=== PATIENT | male | born 2000 | race Caucasian/White ===

== ENCOUNTER 2020-01-08 19:19 | Emergency (ER) | payer OTHER, SELFPAY ==
[2020-01-08 19:23] VITALS: BP 133/84; PULSE 89; RESP 19; TEMP 37.1; O2SAT 100; BMI 31.1
--- NOTE | 2020-01-08 19:39 | ED_ITS ---
HPI - Abdominal Pain General: Chief Complaint: Abdominal Pain Stated Complaint: Abd pain leg numbness Time Seen by Provider: 01/08/20 19:39 Source: patient Mode of arrival: ambulatory Limitations: no limitations History of Present Illness: HPI narrative: Patient comes in with sudden onset of right upper quadrant abdominal pain. Patient states pain started abruptly around 7:00 this evening. Patient had eaten about an hour before. Patient denies any fever. Patient reports wavelike pattern of pain. Patient reports that movement sometimes elicits more pain. Patient appears well. Patient appears mild to moderate pain. Patient reports no chronic medical problems. MD elicited complaint: abdominal pain Review of Systems General: Reports: 10 or more systems reviewed and unremarkable except in HPI and below GI: Reports: abdominal pain Physical Exam Const: COMMON NORMALS: no acute distress and patient oriented x3 GENERAL APPEARANCE: cooperative HENMT: COMMON NORMALS: normocephalic and Normal external nose present HEAD & SCALP: normal to inspection and normocephalic NOSE: Normal external nose present MOUTH: Normal oral and palatal mucosa present Eye: GENERAL EYE: appearance normal, both eyes and all related structures Neck/C-Spine: COMMON NORMALS: full ROM Chest: COMMONS NORMALS: normal inspection of the chest Resp: COMMON NORMALS: normal respiratory effort EFFORT & INSPECTION: Yes able to speak in complete sentences Cardio: COMMON NORMALS: regular rate and regular rhythm RATE: regular rate RHYTHM: regular rhythm GI: OTHER: Generalized abdominal pain. Exacerbated on palpation right upper quadrant and periumbilical area. Bowel sounds are positive throughout all 4 q uadrants. : COMMON NORMALS: Yes no CVA tenderness BLADDER/KIDNEY EXAM: Yes no CVA tenderness Back/Pelvis: COMMON NORMALS: no CVA tenderness and thoracic and lumbar spine normal to inspection Extremity: COMMON NORMALS: normal to inspection Neuro: COMMON NORMALS: patient oriented x3 and moves all extremities Psych: COMMON NORMALS: mental status grossly normal and cooperative Skin: COMMON NORMALS: no rashes or lesions noted GENERAL SKIN EXAM: no rashes or lesions noted Course Vital Signs: Vital signs: Vital Signs Temperature 98.8 F 01/08/20 19:23 Pulse Rate 69 01/08/20 21:21 Respiratory Rate 16 01/08/20 21:21 Blood Pressure 133/84 01/08/20 19:23 Pulse Oximetry 100 01/08/20 21:21 MDM - Abdominal Pain MDM Narrative: Medical decision making narrative: Patient comes in with epigastric abdominal pain. Patient reports sudden onset this evening. Patient was complaining of generalized abdominal discomfort. Respirations were even lungs were clear to auscultation. Skin was warm and dry. Differential diagnosis included but not limited to cholecystitis, appendicitis, gastroenteritis, pancreatitis, renal calculi. Laboratory values noted a CBC, CMP, urinalysis were normal. CT scan of the abdomen pelvis noted no abnormalities. Feel the patient probably has some mild gastritis we will treat with famotidine 20 mg twice a day for the next 2 weeks. Patient was treated in the emergency room with Zofran, famotidine, and ketorolac with good results of pain control and relief of symptoms. Patient reported understanding of care plan and need for follow-up for further evaluation and treatment. Lab Data: Labs: Lab Results 01/08/20 01/08/20 01/08/20 Range/Units 20:02 20:02 20:07 WBC 8.6 (4.5-13.0) 10^3/ uL RBC 5.39 H (4.1-5.3) 10^6/u L Hgb 15.3 (11.7-16.6) g/dL Hct 46.5 (42.0-52.0) % MCV 86.3 (80-94) fL MCH 28.4 (28.0-34.0) pg MCHC 32.9 (30.0-36.0) g/dL RDW 12.3 (12.1-15.1) % Plt Count 346 (130-400) 10^3/c mm MPV 9.8 (7.4-10.4) fL Neut % (Auto) 55.9 % Lymph % (Auto) 33.8 % [place] % (Auto) 7.8 % Eos % (Auto) 2.1 % Baso % (Auto) 0.2 % Neut # (Auto) 4.81 (1.8-8.0) 10^3/u L Lymph # (Auto) 2.9 (1.5-6.5) 10^3/u L [place] # (Auto) 0.7 (0.2-0.9) 10^3/u L Eos # (Auto) 0.2 (0.0-0.8) 10^3/u L Baso # (Auto) 0.0 (0.0-0.1) 10^3/u L Nucleated RBC % (a uto) 0 % Nucleated RBCs # 0.0 /100WBC Sodium 140 (136-145) mmol/L Potassium 4.0 (3.5-5.1) mmol/L Chloride 101 (98-107) mmol/L Carbon Dioxide 27 (22-29) mmol/L Anion Gap 16.0 (5-19) BUN 12 (6-20) mg/dL Creatinine 0.9 (0.7-1.2) mg/dL GFR Calculation 108.7 (90-130) mL/min Glucose 97 (65-115) mg/dL Calculated Osmolal ity 290 (285-295) mOsm/k g Calcium 9.4 (8.5-10.5) mg/dL Total Bilirubin 0.2 (0.15-1.2) mg/dL AST 20 (0-40) U/L ALT 29 (0-41) U/L Alkaline Phosphata se 65 (40-130) IU/L Total Protein 8.0 (6.6-8.7) g/dL Albumin 4.8 (3.5-5.2) g/dL Globulin 3.2 (1.3-4.6) g/dL Lipase 13 (13-60) U/L Urine Color Yellow (Yellow) Urine Appearance Clear (CLEAR) Urine pH 7 (5-7) Ur Specific Gravit y 1.010 (1.005-1.030) Urine Protein Neg (Negative) Urine Glucose (UA) Norm (Normal) Urine Ketones Negative (Negative) Urine Blood Neg (Negative) Urine Nitrate Negative (Negative) Urine Bilirubin Neg (Negative) Urine Urobilinogen Norm (Negative) mg/dL Ur Leukocyte Antonia ase Negative (Negative) Discharge Plan Discharge Patient Disposition: Home Clinical Impression: Gastritis Qualifiers: Gastritis type: unspecified gastritis Chronicity: acute Gastritis bleeding: without bleeding Qualified Code(s): K29.00 - Acute gastritis without bleeding Condition: Stable Prescriptions: New famotidine 20 mg tablet 20 mg PO BID Qty: 60 RF: 0 No Action Tylenol 325 mg Tablet 325 mg PO QID PRN (Reason: Pain) RF: 0 Imodium A-D 2 mg Tablet 2 mg PO Q4H PRN (Reason: Diarrhea) RF: 0 hydrocodone-acetaminophen 7.5-325 mg Tablet 1 tab PO Q4H PRN (Reason: Pain) RF: 0 ibuprofen 200 mg Tablet 200 - 400 mg PO Q4H PRN (Reason: Pain) RF: 0 Discharge Orders: Discharge Order (Routine); Ordered 01/08/20 Ordered By: Uday Waller Discharge Diet: Usual diet Discharge Activity: Increase activity as tolerated Patient Instructions: Gastritis (ED) Activity Restrictions/Additional Instructions: Avoid tobacco and carbonated beverages. Drink plenty of fluids. Take medications as directed. Follow-up with primary care for further evaluation and treatment. Return to the emergency department for new concerns. Coding Level of Care Code ED Deliverer Food for Pranay Fwjoaquin Exam Comprehensive
--- NOTE | 2020-01-08 19:45 | CTR_ITS ---
PROCEDURE INFORMATION: Exam: CT Abdomen And Pelvis With Contrast Exam date and time: 01/08/2020 8:38 PM Age: 19 years old Clinical indication: Abdominal pain; Generalized; Additional info: Diffuse abd pain TECHNIQUE: Imaging protocol: Computed tomography of the abdomen and pelvis with intravenous contrast. Radiation optimization: All CT scans at this facility use at least one of these dose optimization techniques: automated exposure control; mA and/or kV adjustment per patient size (includes targeted exams where dose is matched to clinical indication); or iterative reconstruction. Contrast material: OMNI 300; Contrast volume: 95 ml; Contrast route: INTRAVENOUS (IV); COMPARISON: No relevant prior studies available. RADIATION DOSE METRICS: Total DLP (mGy-cm): 1042.99 FINDINGS: Liver: There is no focal abnormality within the liver. Gallbladder and bile ducts: The gallbladder is normal. Pancreas: The pancreas is normal. Spleen: The spleen is normal. Adrenal glands: The adrenal glands are normal. Kidneys and ureters: The kidneys are normal. There is no evidence of hydronephrosis. There is no evidence of renal or ureteral calcifications. Stomach and bowel: There is no evidence of colitis/diverticulitis. Appendix: A normal appendix is identified. Intraperitoneal space: There is no evidence of free intraperitoneal fluid. Vasculature: Unremarkable. No abdominal aortic aneurysm. Lymph nodes: Unremarkable. No enlarged lymph nodes. Urinary bladder: Unremarkable as visualized. Reproductive: Unremarkable as visualized. Bones/joints: Unremarkable. No acute fracture. Soft tissues: Unremarkable. CT/CT abdomen pelvis w con* [id number] IMPRESSION: No acute findings. Radiation Dose CTDIVOL = (mGy): DLP = 1042.99 (mGy-cm)
[2020-01-08 20:16] LABS: Basophils % 0.2 %; Eosinophils # 0.2 10^3/uL (0.0-0.8); Eosinophils % 2.1 %; Hematocrit 46.5 % (42.0-52.0); Hemoglobin 15.3 g/dL (11.7-16.6); Lymphocytes # 2.9 10^3/uL (1.5-6.5); Lymphocytes % 33.8 %; Mean Corpuscular HGB Conc 32.9 g/dL (30.0-36.0); Mean Corpuscular Hemoglobin 28.4 pg (28.0-34.0); Mean Corpuscular Volume 86.3 fL (80-94); Mean Platelet Volume 9.8 fL (7.4-10.4); Monocytes # 0.7 10^3/uL (0.2-0.9); Monocytes % 7.8 %; Neutrophils # 4.81 10^3/uL (1.8-8.0); Neutrophils % 55.9 %; Nucleated Red Blood Cells % 0 %; Platelet Count 346 10^3/cmm (130-400); Red Blood Count 5.39 10^6/uL (4.1-5.3); Red Cell Distribution Width 12.3 % (12.1-15.1); White Blood Count 8.6 10^3/uL (4.5-13.0)
[2020-01-08 20:20] LABS: Add Urine Microscopic? NO
[2020-01-08 20:29] LABS: Bilirubin Urine Neg (Negative); Blood Urine Neg (Negative); Glucose Urine UA Norm (Normal); Ketones Urine Negative (Negative); Leukocyte Esterase Urine Negative (Negative); Nitrate Urine Negative (Negative); Protein Urine Neg (Negative); Urine Appearance Clear (CLEAR); Urine Color Yellow (Yellow); Urobilinogen Urine Norm (Negative); pH Urine 7 (5-7)
[2020-01-08 20:33] LABS: Alanine Aminotransferase 29 U/L (0-41); Albumin Level 4.8 g/dL (3.5-5.2); Alkaline Phosphatase 65 IU/L (40-130); Aspartate Amino Transferase 20 U/L (0-40); Blood Urea Nitrogen 12 mg/dL (6-20); Calcium 9.4 mg/dL (8.5-10.5); Carbon Dioxide 27 mmol/L (22-29); Chloride 101 mmol/L (98-107); Globulin 3.2 g/dL (1.3-4.6); Glomerular Filtration Rate 108.7 mL/min (90-130); Glucose 97 mg/dL (65-115); Lipase 13 U/L (13-60); Osmolality Calculated 290 mOsm/kg (285-295); Sodium 140 mmol/L (136-145); Total Bilirubin 0.2 mg/dL (0.15-1.2)
[2020-01-08] MEDS: famotidine 20 mg/2 mL INJ 40 MG IVP (20:33)
[2020-01-08] MEDS: ketorolac 30 mg/mL INJ 15 MG IVP (20:33)
[2020-01-08] MEDS: ondansetron 2 mg/ML SDV 2 mL 4 MG IVP (20:33)
[2020-01-08] MEDS: iohexol 300 mg/mL 100 mL Btl IV (20:49)
[2020-01-08 21:21] VITALS: PULSE 69; RESP 16; O2SAT 100
== END 2020-01-08 22:01 | disposition home or self-care (01) ==
PROVIDERS: Emergency Medicine; Emergency Provider Nurse Practitioner Family
DX: K29.00 Acute gastritis without bleeding (principal)
CPT/HCPCS: 12345; 74177; 80053; 81003; 83690; 85025; 96374; 96375; 99283; J1885; J2405; J3490; Q9967

== ENCOUNTER 2021-05-20 17:59 | Observation (INO) | payer OTHER, SELFPAY ==
[2021-05-20 18:13] VITALS: BP 142/82; PULSE 77; RESP 18; TEMP 36.9; O2SAT 99; BMI 32.5
--- NOTE | 2021-05-20 18:29 | CTR_ITS ---
PROCEDURE INFORMATION: Exam: CT Abdomen And Pelvis With Contrast Exam date and time: 05/20/2021 6:59 PM Age: 20 years old Clinical indication: Abdominal pain; Localized; Right lower quadrant (rlq); Patient HX: 2 day C/O rlq pain w nausea and diarrhea; Additional info: Rlq abdominal pain, nausea, diarrhea TECHNIQUE: Imaging protocol: Computed tomography of the abdomen and pelvis with contrast. Radiation optimization: All CT scans at this facility use at least one of these dose optimization techniques: automated exposure control; mA and/or kV adjustment per patient size (includes targeted exams where dose is matched to clinical indication); or iterative reconstruction. Contrast material: OMNI 300; Contrast volume: 95 ml; Contrast route: INTRAVENOUS (IV); COMPARISON: CT abdomen pelvis w con* [id number] 01/08/2020 8:39 PM RADIATION DOSE METRICS: Total DLP (mGy-cm): 1799.56 FINDINGS: Lungs: The lung bases appear unremarkable. Liver: The liver is unremarkable in appearance. Gallbladder and bile ducts: No calcified gallstones in the gallbladder. No gallbladder wall thickening. No pericholecystic fluid. No biliary dilatation. Pancreas: The pancreas is normal in appearance. No pancreatic duct dilatation. Spleen: The spleen is normal in size and appearance. Adrenal glands: The adrenal glands appear within normal limits. Kidneys and ureters: The kidneys are normal in morphology. No hydronephrosis. No solid mass. Stomach and bowel: No acute gastric abnormality demonstrated. The small bowel is unremarkable as demonstrated. No acute abnormality/inflammatory change of the colon. Appendix: The appendix is mildly enlarged, measuring up to 6.5 mm in diameter. This mild enlargement of the appendix is a new finding when compared to 01/08/2020, and is suspicious for early appendicitis. The appendix is normal in appearance. No evidence of appendicitis. Intraperitoneal space: No free air. No significant fluid collection. Arteries: Unremarkable. No abdominal aortic aneurysm. Lymph nodes: No pathologically enlarged lymph nodes. Urinary bladder: The urinary bladder is unremarkable in appearance. The urinary bladder is unremarkable in appearance. Reproductive: Unremarkable as visualized. Bones/joints: Unremarkable. No acute osseous abnormality. Soft tissues: Unremarkable. CT/CT abdomen pelvis w con* [id number] IMPRESSION: 1. The appendix is mildly enlarged, measuring up to 6.5 mm in diameter. This mild enlargement of the appendix is a new finding when compared to 01/08/2020, and is suspicious for early appendicitis. There is no associated perforation or abscess. 2. No acute abnormality of the solid organs demonstrated. 3. No acute bowel abnormality identified.
--- NOTE | 2021-05-20 18:30 | W.ED.ABDPA2 ---
HPI - Abdominal Pain General: Chief Complaint: Abdominal Pain Stated Complaint: R side abd pain Time Seen by Provider: 05/20/21 18:05 History of Present Illness: Patient is a 20-year-old male comes to the ED with abdominal pain. Symptoms started 2 days ago. Pain is located in right lower quadrant and was initially more mild dull ache pain. Over the last 24 hours the pain has worsened and he now rates it a 7 out of 10 and it is constant. He says pain starts on the right lower quadrant and will radiate up the right side of his abdomen. Endorses having some nausea and decreased appetite for the past 2 days. He also endorses having a couple episodes of diarrhea over the last 24 hours as well. Denies any past abdominal surgeries. Denies any fevers, vomiting, dysuria or hematuria. Associated Symptoms: Reports diarrhea and nausea; Denies chills, constipation, dysuria, fever(s), hematochezia, hematuria and vomiting Review of Systems Const: Reports: change in appetite (Decreased appetite); Denies: fever(s), chills or fatigue Eyes: Denies: change in vision or eye discomfort ENMT: Denies: throat pain, odynophagia, nasal discharge or nasal congestion Card: Denies: chest pain, palpitations, edema, swelling of feet/ankles, dyspnea on exertion or orthopnea Resp: Denies: dyspnea, productive cough or non-productive cough GI: Reports: abdominal pain, nausea and diarrhea; Denies: vomiting, constipation or hematochezia : Denies: flank pain, difficulty urinating, dysuria or hematuria Musc: Denies: neck pain, back pain or extremity swelling Skin/Breast: Denies: rash or new lesions Neuro: Denies: headache(s), numbness in extremities or weakness in extremities PFS ED PFSH: Medical History No pertinent past medical history Surgical History No pertinent past surgical history Physical Exam Const: COMMON NORMALS: patient oriented x3 and alert GENERAL APPEARANCE: cooperative HENMT: COMMON NORMALS: normocephalic HEAD & SCALP: normocephalic MOUTH: Normal oral and palatal mucosa present THROAT: posterior oropharynx normal and uvula midline Neck/C-Spine: COMMON NORMALS: supple GENERAL: Yes normal visual inspection Resp: COMMON NORMALS: normal respiratory effort, No retractions, No use of accessory muscles and clear to auscultation bilaterally AUSCULTATION: clear to auscultation bilaterally Cardio: COMMON NORMALS: regular rate, regular rhythm, S1 normal heart sound present, S2 normal heart sound present, No gallops present (Cardio), No clicks present (Cardio), No murmurs present (Cardio) and Peripheral pulses 2+ throughout RATE: regular rate RHYTHM: regular rhythm HEART SOUNDS: S1 normal heart sound present and S2 normal heart sound present PERIPHERAL PULSES: Peripheral pulses 2+ throughout GI: COMMON NORMALS: Normal to inspection, nondistended, normoactive bowel sounds present, Soft to palpation and no masses PALPATION: Yes Soft to palpation and Yes Tenderness to palpation present (GI) Details: RLQ : BLADDER/KIDNEY EXAM: Yes CVA tenderness on the right Back/Pelvis: GENERAL BACK: Yes CVA tenderness Extremity: COMMON NORMALS: normal to inspection Neuro: COMMON NORMALS: patient oriented x3 SENSORIUM/ORIENTATION: Yes alert GAIT: Yes Normal gait present Skin: GENERAL SKIN EXAM: dry skin Course Consultations: Consultation #1: I contacted Dr. Duncan dull about patient case. He agreed to have patient admitted and he will take them for surgery tomorrow morning. He wanted me to start patient on IV Zosyn. Time: 19:45 Vital Signs: Vital signs: Vital Signs Temperature 98.5 F 05/20/21 18:13 Pulse Rate 77 05/20/21 18:13 Respiratory Rate 16 05/20/21 20:26 Blood Pressure 142/82 05/20/21 18:13 Pulse Oximetry 99 05/20/21 18:13 MDM - Abdominal Pain Medical Decision Making Patient is a 20-year-old male comes to the ED with right lower quadrant abdominal pain this feeling over the past 2 days. Vitals are stable and patient is afebrile. Exam of patient shows some right lower quadrant abdominal tenderness, but rest of exam is benign. White blood cell count normal at 7.8. Blood cultures pending. The rest of labs are unremarkable. CT of abdomen pelvis showed signs of early appendicitis. I contacted Dr. Duncan and told about patient case and he recommends having patient admitted and he will take them for surgery tomorrow morning. Patient was started on some IV Zosyn here in the ED. Dr. Vargas placed the admitting orders. Lab Data I reviewed the patient's lab results. : 05/20/21 18:38 05/20/21 18:38 Labs/Radiology: Radiology Impressions Abdomen/Pelvis CT 05/20/21 18:29 IMPRESSION: 1. The appendix is mildly enlarged, measuring up to 6.5 mm in diameter. This mild enlargement of the appendix is a new finding when compared to 01/08/2020, and is suspicious for early appendicitis. There is no associated perforation or abscess. 2. No acute abnormality of the solid organs demonstrated. 3. No acute bowel abnormality identified. ADDENDUM: 05/20/21 193 THIS REPORT CONTAINS FINDINGS MAY BE CRITICAL TO PATIENT CARE. The findings were verbally communicated via telephone conference call with TAYA ELIZABETH at 7:29 PM CDT on 05/20/2021. The findings were acknowledged and understood. Laboratory Results WBC 7.8 10^3/uL (4.5-13.0) 05/20/21 18:38 RBC 5.72 10^6/uL (4.1-5.3) H 05/20/21 18:38 Hgb 16.3 g/dL (11.7-16.6) 05/20/21 18:38 Hct 49.5 % (42.0-52.0) 05/20/21 18:38 MCV 86.5 fl (80-94) 05/20/21 18:38 MCH 28.5 pg (28.0-34.0) 05/20/21 18:38 MCHC 32.9 g/dL (30.0-36.0) 05/20/21 18:38 RDW 12.5 % (12.1-15.1) 05/20/21 18:38 Plt Count 371 10^3/cmm (130-400) 05/20/21 18:38 MPV 9.9 fL (7.4-10.4) 05/20/21 18:38 Neut % (Auto) 55.0 % 05/20/21 18:38 Lymph % (Auto) 32.8 % 05/20/21 18:38 [place] % (Auto) 10.0 % 05/20/21 18:38 Eos % (Auto) 1.5 % 05/20/21 18:38 Baso % (Auto) 0.4 % 05/20/21 18:38 Neut # (Auto) 4.30 10^3/uL (1.8-8.0) 05/20/21 18:38 Lymph # (Auto) 2.6 10^3/uL (1.5-6.5) 05/20/21 18:38 [place] # (Auto) 0.8 10^3/uL (0.2-0.9) 05/20/21 18:38 Eos # (Auto) 0.1 10^3/uL (0.0-0.8) 05/20/21 18:38 Baso # (Auto) 0.0 10^3/uL (0.0-0.1) 05/20/21 18:38 Nucleated RBC % (auto) 0 % 05/20/21 18:38 Nucleated RBCs # 0.0 /100WBC 05/20/21 18:38 Sodium 138 mmol/L (136-145) 05/20/21 18:38 Potassium 4.2 mmol/L (3.5-5.1) 05/20/21 18:38 Chloride 100 mmol/L (98-107) 05/20/21 18:38 Carbon Dioxide 28 mmol/L (22-29) 05/20/21 18:38 Anion Gap 14.2 (5-19) 05/20/21 18:38 BUN 10 mg/dL (6-20) 05/20/21 18:38 Creatinine 1.0 mg/dL (0.7-1.2) 05/20/21 18:38 GFR Calculation 95.3 mL/min (90-130) 05/20/21 18:38 Glucose 78 mg/dL (65-115) 05/20/21 18:38 Calculated Osmolality 284 mOsm/kg (285-295) L 05/20/21 18:38 Calcium 9.9 mg/dL (8.5-10.5) 05/20/21 18:38 Total Bilirubin 0.5 mg/dL (0.15-1.2) 05/20/21 18:38 AST 24 U/L (0-40) 05/20/21 18:38 ALT 35 U/L (0-41) 05/20/21 18:38 Alkaline Phosphatase 71 IU/L (40-130) 05/20/21 18:38 Total Protein 8.9 g/dL (6.6-8.7) H 05/20/21 18:38 Albumin 5.1 g/dL (3.5-5.2) 05/20/21 18:38 Globulin 3.8 g/dL (1.3-4.6) 05/20/21 18:38 Lipase 18 U/L (13-60) 05/20/21 18:38 Urine Color Yellow (Yellow) 05/20/21 18:53 Urine Appearance Clear (CLEAR) 05/20/21 18:53 Urine pH 7 (5-7) 05/20/21 18:53 Ur Specific [place] 1.005 (1.005-1.030) 05/20/21 18:53 Urine Protein Neg (Negative) 05/20/21 18:53 Urine Glucose (UA) Norm (Normal) 05/20/21 18:53 Urine Ketones Negative (Negative) 05/20/21 18:53 Urine Blood Neg (Negative) 05/20/21 18:53 Urine Nitrate Negative (Negative) 05/20/21 18:53 Urine Bilirubin Neg (Negative) 05/20/21 18:53 Urine Urobilinogen Norm mg/dL (Negative) 05/20/21 18:53 Ur Leukocyte Esterase Negative (Negative) 05/20/21 18:53 Discharge Plan Discharge Patient Disposition: Admitted As Inpatient Clinical Impression: Acute appendicitis Qualifiers: Acute appendicitis type: with localized peritonitis Appendicitis gangrene presence: without gangrene Appendicitis perforation presence: without perforation Appendicitis abscess presence: without abscess Qualified Code(s): K35.30 - Acute appendicitis with localized peritonitis, without perforation or gangrene Condition: Stable Discharge Activity: Resume usual activity Coding Level of Care Code ED Protection Manager for Pranay Fwd Exam Comprehensive
[2021-05-20 18:46] LABS: Basophils % 0.4 %; Eosinophils # 0.1 10^3/uL (0.0-0.8); Eosinophils % 1.5 %; Hematocrit 49.5 % (42.0-52.0); Hemoglobin 16.3 g/dL (11.7-16.6); Lymphocytes # 2.6 10^3/uL (1.5-6.5); Lymphocytes % 32.8 %; Mean Corpuscular HGB Conc 32.9 g/dL (30.0-36.0); Mean Corpuscular Hemoglobin 28.5 pg (28.0-34.0); Mean Corpuscular Volume 86.5 fl (80-94); Mean Platelet Volume 9.9 fL (7.4-10.4); Monocytes # 0.8 10^3/uL (0.2-0.9); Nucleated Red Blood Cells % 0 %; Platelet Count 371 10^3/cmm (130-400); Red Blood Count 5.72 10^6/uL (4.1-5.3); Red Cell Distribution Width 12.5 % (12.1-15.1); White Blood Count 7.8 10^3/uL (4.5-13.0)
[2021-05-20] MEDS: sodium chloride 0.9% 500 ML 999 ML IV (18:46)
[2021-05-20] MEDS: morphine 4 mg/mL SDV 1 mL 2 MG IVP (18:48)
[2021-05-20] MEDS: ondansetron 2 mg/ML SDV 2 mL 4 MG IVP (18:51)
[2021-05-20] MEDS: iohexol 300 mg/mL 100 mL Btl IV (18:57)
[2021-05-20 19:11] LABS: Alanine Aminotransferase 35 U/L (0-41); Albumin Level 5.1 g/dL (3.5-5.2); Alkaline Phosphatase 71 IU/L (40-130); Anion Gap 14.2 (5-19); Blood Urea Nitrogen 10 mg/dL (6-20); Calcium 9.9 mg/dL (8.5-10.5); Carbon Dioxide 28 mmol/L (22-29); Chloride 100 mmol/L (98-107); Creatinine Clr Calc Pharmacy 150.1747; Globulin 3.8 g/dL (1.3-4.6); Glomerular Filtration Rate 95.3 mL/min (90-130); Glucose 78 mg/dL (65-115); Lipase 18 U/L (13-60); Osmolality Calculated 284 mOsm/kg (285-295); Potassium 4.2 mmol/L (3.5-5.1); Sodium 138 mmol/L (136-145); Total Bilirubin 0.5 mg/dL (0.15-1.2); Total Protein 8.9 g/dL (6.6-8.7)
[2021-05-20 19:20] LABS: Aspartate Amino Transferase 24 U/L (0-40)
[2021-05-20 19:21] LABS: Add Urine Microscopic? NO; Charge for UA Resulting for Rev
[2021-05-20 19:25] LABS: Bilirubin Urine Neg (Negative); Blood Urine Neg (Negative); Glucose Urine UA Norm (Normal); Ketones Urine Negative (Negative); Leukocyte Esterase Urine Negative (Negative); Nitrate Urine Negative (Negative); Protein Urine Neg (Negative); Specific Gravity, Urine 1.005 (1.005-1.030); Urine Appearance Clear (CLEAR); Urine Color Yellow (Yellow); Urobilinogen Urine Norm (Negative); pH Urine 7 (5-7)
[2021-05-20] MEDS: piperacillin-tazobactam 3.375 GM in sodium chloride 0.9% (plus) 50 ML IV (20:12)
[2021-05-20 20:26] VITALS: RESP 16
[2021-05-20] MEDS: morphine 4 mg/mL SDV 1 mL IVP ×2 (20:26→21:46)
[2021-05-20 21:18] VITALS: BMI 32.4
[2021-05-20 21:33] VITALS: BP 123/74; PULSE 66; RESP 17; TEMP 37.2; O2SAT 98
[2021-05-20] MEDS: sodium chloride 0.9% 1,000 ML 100 ML IV (21:44)
[2021-05-20 21:46] VITALS: RESP 16
[2021-05-20 23:46] VITALS: BP 107/63; PULSE 65; RESP 17; TEMP 36.4; O2SAT 97
[2021-05-21] VITALS (29 sets, daily range): BP systolic 96–146; BP diastolic 48–77; PULSE 61–99; RESP 14–22; TEMP 36.2–37.2; O2SAT 91–100
[2021-05-21] MEDS: piperacillin-tazobactam 3.375 GM in sodium chloride 0.9% (plus) 50 ML IV ×3 (01:21→18:06)
[2021-05-21] MEDS: morphine 4 mg/mL SDV 1 mL IVP ×3 (01:51→23:27)
[2021-05-21 03:52] LABS: Basophils % 0.2 %; Eosinophils # 0.1 10^3/uL (0.0-0.8); Eosinophils % 1.4 %; Hematocrit 41.5 % (42.0-52.0); Hemoglobin 13.5 g/dL (11.7-16.6); Lymphocytes # 2.9 10^3/uL (1.5-6.5); Lymphocytes % 30.6 %; Mean Corpuscular HGB Conc 32.5 g/dL (30.0-36.0); Mean Corpuscular Hemoglobin 28.4 pg (28.0-34.0); Mean Corpuscular Volume 87.2 fl (80-94); Mean Platelet Volume 10.4 fL (7.4-10.4); Monocytes # 0.7 10^3/uL (0.2-0.9); Monocytes % 7.5 %; Neutrophils # 5.74 10^3/uL (1.8-8.0); Neutrophils % 60.2 %; Nucleated Red Blood Cells % 0 %; Platelet Count 320 10^3/cmm (130-400); Red Blood Count 4.76 10^6/uL (4.1-5.3); Red Cell Distribution Width 12.5 % (12.1-15.1); White Blood Count 9.5 10^3/uL (4.5-13.0)
--- NOTE | 2021-05-21 05:57 | PC.NURSE ---
PATIENT ENCOURAGED TO GET UP IN CHAIR THIS AM. PATIENT VERBALIZED UNDERSTANDING.
--- NOTE | 2021-05-21 06:04 | P.HP_ITS ---
Providers/Chief Complaint Admitting Physician: Eliazar Duncan MD Chief Complaint: R side abd pain History of Present Illness Mr. Uday Shelton is a 20 year old male otherwise healthy presented to the emergency department with worsening right lower abdominal pain associated with nausea but no vomiting. Pain started first at the periumbilical area then started shifting to the right side. Describes it as sharp and then got worse. Nothing seems to make it better or worse. Patient denies any dysuria but he did have some looser stools last time he had a bowel movement was yesterday evening prior to coming to the ER. He is healthy otherwise and only procedure he did have undergone uneventful wisdom tooth extraction under [facility] and he reports that hydrocodone does not work good for him but only Percocet. Patient reports history of DVT in the family for his grandparents but nothing has been tested for factor V and himself he never had blood clot. No history of bleeding tendencies otherwise. Blood work was of insignificance. Undergone a CT scan of the abdomen pelvis that did show 1. The appendix is mildly enlarged, measuring up to 6.5 mm in diameter. This mild enlargement of the appendix is a new finding when compared to 01/08/2020, and is suspicious for early appendicitis. There is no associated perforation or abscess. 2. No acute abnormality of the solid organs demonstrated. 3. No acute bowel abnormality identified. General surgery was consulted for further evaluation and patient was admitted to my service as an observation status and was placed on broad-spectrum antibiotics and was kept n.p.o. with IV fluid resuscitation with the plan to perform laparoscopic appendectomy. ? Review of Systems General: Reports: 10 or more systems reviewed and unremarkable except in HPI and below Medications/Allergies Home Medications Medication Instructions Recorded Confirmed Last Taken Type acetaminophen 325 mg tablet 325 mg PO QID PRN 01/08/20 01/08/20 Unknown History (Tylenol) famotidine 20 mg tablet 20 mg PO BID #60 tab 01/08/20 Unknown Rx hydrocodone 7.5 mg-acetaminophen 1 tab PO Q4H PRN 01/08/20 01/08/20 Unknown History 325 mg tablet ibuprofen 200 mg tablet 200 - 400 mg PO Q4H PRN 01/08/20 01/08/20 Unknown History loperamide 2 mg tablet (Imodium 2 mg PO Q4H PRN 01/08/20 01/08/20 01/08/20 History A-D) Allergies Allergy/AdvReac Type Severity Reaction Status Date / Time No Known Allergies Allergy Verified 05/21/21 06:06 PFSH Acute PFSH: Medical History No pertinent past medical history Surgical History No pertinent past surgical history Family History Other Bleeding disorder Vitals/I&O/Wt Last Vital Signs Temp 97.7 F 05/21/21 04:00 Pulse 61 05/21/21 04:00 Resp 15 05/21/21 05:53 BP 104/66 05/21/21 04:00 Pulse Ox 98 05/21/21 04:00 05/20/21 05/20/21 05/21/21 14:59 22:59 06:59 Intake Total 50 / 50 50 / 100 Output Total 0 / 0 Balance 50 / 50 50 / 100 Weight last 48 hrs Weight 239 lb 6.4 oz Weight 240 lb Physical Exam Const: COMMON NORMALS: no acute distress and patient oriented x3 GENERAL APPEARANCE: cooperative ORIENTATION/CONSCIOUSNESS: Yes awake, Yes oriented to person, Yes oriented to place and Yes oriented to time HENMT: COMMON NORMALS: normocephalic HEAD & SCALP: normocephalic Eye: COMMON NORMALS: Equal, round and reactive pupils present and no scleral icterus PUPIL: Yes Equal, round and reactive pupils present Lymph: LYMPHATIC: no lymphadenopathy noted Chest: COMMONS NORMALS: normal inspection of the chest Resp: COMMON NORMALS: normal respiratory effort and clear to auscultation bilaterally AUSCULTATION: clear to auscultation bilaterally Cardio: COMMON NORMALS: S1 normal heart sound present and S2 normal heart s ound present; negative for No murmurs present (Cardio) HEART SOUNDS: S1 normal heart sound present and S2 normal heart sound present GI: COMMON NORMALS: Soft to palpation; negative for No hepatosplenomegaly present INSPECTION: Yes normal to inspection PALPATION: Yes Soft to palpation, No Firmness to palpation present (GI), Yes Tenderness to palpation present (GI) Details: RLQ (Tenderness of the right lower quadrant maximal at McBurney's point), No Guarding due to palpation present (GI), No Rigid due to palpation and No No hepatosplenomegaly present Neuro: COMMON NORMALS: patient oriented x3 SENSORIUM/ORIENTATION: Yes oriented to person, Yes oriented to place and Yes oriented to time Psych: COMMON NORMALS: mental status grossly normal Skin: COMMON NORMALS: no rashes or lesions noted GENERAL SKIN EXAM: no rashes or lesions noted Data : 05/21/21 02:45 05/20/21 18:38 Micro: Microbiology 05/20/21 19:52 Blood Culture - Preliminary Blood SPECIMEN COLLECTED 05/20/21 19:38 Blood Culture - Preliminary Blood SPECIMEN COLLECTED A&P Assessment and plan (1) Acute appendicitis: After thorough history physical examination and reviewing the chart and images with my personal interpretion, I counseled the patient for laparoscopic appendectomy possible open. Indications, risks, benefits and alternatives were all discussed with the patient and did agree to proceed. Rationale was carefully and clearly discussed with the patient.Appropriate informed consent have been reviewed and signed Status: Acute Qualifiers: Acute appendicitis type: with localized peritonitis Appendicitis abscess presence: without abscess Appendicitis gangrene presence: without gangrene Appendicitis perforation presence: without perforation Qualified Code(s): K35.30 - Acute appendicitis with localized peritonitis, without perforation or gangrene Attestations Medical Necessity Statement*: Observation status Time Spent in Patient Care: 16 - 35 minutes Coding Level of Care Code Acute [place] [employer] for [facility] Fwd Exam Comprehensive Diagnoses Acute appendicitis K35.30 Acute appendicitis type: with localized peritonitis Appendicitis abscess presence: without abscess Appendicitis gangrene presence: without gangrene Appendicitis perforation presence: without perforation
[2021-05-21] MEDS: heparin 5,000 unit/mL INJ 1 mL 2000 UNIT SUBCUT (07:54)
[2021-05-21] MEDS: acetaminophen 1,000 MG/100 ML PIGGYBACK 400 MG IV (07:54)
--- NOTE | 2021-05-21 08:13 | ANES.PREANE2 ---
Pre-Anesthetic Assessment Height/Weight: Height 1.83 m Weight 108.59 kg Temp Pulse Resp BP Pulse Ox 97.7 F 61 15 104/66 98 05/21/21 04:00 05/21/21 04:00 05/21/21 05:53 05/21/21 04:00 05/21/21 04:00 Preop Diagnosis: Acute appendicitis Operation Date: 05/21/21 08:50 Proposed Procedures p Laparoscopic Appendectomy c poss Open(Not Applicable) - Eliazar Duncan MD Familial anesthetic complications: None Was Beta Bel taken within 24 hours: N/A Was Clonidine taken within 24 hours: N/A Last intake: Intake Last Liquid Date 05/20/21 Last Liquid Time 23:45 Last Solid Date 05/20/21 Last Solid Time 14:00 Social Alcohol (occassional) and Tobacco Exam alert, oriented x 3, clear to auscultation bilaterally and regular rate & rhythm Airway Mallampati: Class IV Dentition: full Comments: Comments: menjivar GI Gastroesophageal Reflux Disease Anesthetic Plan ASA status: 2 Anesthesia: General Risk of > 500 ml blood loss (7ml/kg in children): No Medications/Allergies Home Medications Medication Instructions Recorded Confirmed Last Taken Type acetaminophen 325 mg tablet 325 mg PO QID PRN 01/08/20 01/08/20 Unknown History (Tylenol) famotidine 20 mg tablet 20 mg PO BID #60 tab 01/08/20 Unknown Rx hydrocodone 7.5 mg-acetaminophen 1 tab PO Q4H PRN 01/08/20 01/08/20 Unknown History 325 mg tablet ibuprofen 200 mg tablet 200 - 400 mg PO Q4H PRN 01/08/20 01/08/20 Unknown History loperamide 2 mg tablet (Imodium 2 mg PO Q4H PRN 01/08/20 01/08/20 01/08/20 History A-D) Allergies Allergy/AdvReac Type Severity Reaction Status Date / Time No Known Allergies Allergy Verified 05/21/21 06:06 Current Medications Generic Name Dose Route Start Last Admin Trade Name Freq PRN Reason Stop Dose Admin Sodium Chloride 1,000 mls @ 100 mls/hr 05/20/21 21:17 05/20/21 21:44 Sodium Chloride 0.9% IV 100 mls/hr .Q10H ALEJANDRA Administration Piperacillin Sod/Tazobactam 50 mls @ 12.5 mls/hr 05/21/21 02:15 05/21/21 05:23 Sod 3.375 gm/ Sodium Chloride IV Infused Q8H ALEJANDRA Infusion Protocol Morphine Sulfate 4 mg 05/20/21 21:17 05/21/21 05:53 Morphine 4 Mg/Ml Sdv 1 Ml IVP 4 mg Q4H PRN Administration SEVERE PAIN PFSH Anesthesia Medical History No pertinent past medical history Surgical History No pertinent past surgical history Family History Other Bleeding disorder Data Anesthesia : 05/21/21 02:45 05/20/21 18:38 Short CBC 05/20/21 05/21/21 Range/Units 18:38 02:45 WBC 7.8 9.5 (4.5-13.0) 10^3/uL Hgb 16.3 13.5 (11.7-16.6) g/dL Hct 49.5 41.5 L (42.0-52.0) % MCV 86.5 87.2 (80-94) fl Plt Count 371 320 (130-400) 10^3/cmm Neut % (Auto) 55.0 60.2 % Neut # (Auto) 4.30 5.74 (1.8-8.0) 10^3/uL BMP 05/20/21 18:38 Sodium 138 Potassium 4.2 Chloride 100 Carbon Dioxide 28 BUN 10 Creatinine 1.0 Glucose 78 Calcium 9.9 Liver Function 05/20/21 Range/Units 18:38 Total Bilirubin 0.5 (0.15-1.2) mg/dL AST 24 (0-40) U/L ALT 35 (0-41) U/L Alkaline Phosphatase 71 (40-130) IU/L Albumin 5.1 (3.5-5.2) g/dL Urine 05/20/21 Range/Units 18:53 Urine Color Yellow (Yellow) Urine Appearance Clear (CLEAR) Urine pH 7 (5-7) Ur Specific [place] 1.005 (1.005-1.030) Urine Protein Neg (Negative) Urine Glucose (UA) Norm (Normal) Urine Ketones Negative (Negative) Urine Nitrate Negative (Negative) Urine Bilirubin Neg (Negative) Ur Leukocyte Esterase Negative (Negative) Microbiology 05/20/21 19:52 Blood Culture - Preliminary Blood SPECIMEN COLLECTED 05/20/21 19:38 Blood Culture - Preliminary Blood SPECIMEN COLLECTED Cardiac Studies: No Data to Display
[2021-05-21] MEDS: sodium chloride 0.9% 1,000 ML 30 ML IV (08:20)
[2021-05-21] MEDS: lidocaine 2% INJ 20 mL INJECTION (09:18)
--- NOTE | 2021-05-21 09:31 | PM.OP ---
Operative Report Date of procedure: May 21, 2021 Pre-op diagnosis: Preop Diagnosis Acute appendicitis Post-op diagnosis: Acute appendicitis Post-op findings: Retrocecal appendicitis without perforation Procedure done: Laparoscopic appendectomy Specimens removed/disposition: Appendix Surgeon: Eliazar Duncan MD Drop Count Associate: Surgical karlene Vital and Mckenzie Circulating nurse Josefina Anesthesia: General (application penetration tester Will Smart) Estimated blood loss (mL): 10 IV fluids (mL): 700 Procedure: Patient after being identified in the holding area and asked to void urine, and informed consent per chart ,patient was then taken back to the OR placed in supine position got intubated by anesthesia left arm was tucked tucked ,Timeout was done verifying the patient's name/date of /planned procedure and destination after the procedure, all were in agreement., preoperative antibiotics administered per protocol. prep and drape of the abdomen was done under the usual sterile technique. Started by longitudinal skin incision supraumbilical using a Fernández trocar technique safe entry to the abdominal cavity was achieved verified by using 10 mm zero degree laparoscopy, switched to a 30? scope under direct visualization a suprapubic 5 mm trocar was inserted followed by another 5 mm trocar inserted in the left lower quadrant. I was able to position the patient in an T Freitas and left side down, dissection of the prececal acutely inflamed appendix there was some adhesions towards the lateral pelvic wall that was taken down by sharp and blunt dissection, attention was deviated to the healthy base of the appendix where I had to switch the camera to 5 mm 30? scope got introduced through the left lower quadrant and through the Fernández trocar under direct visualization a GI stapler 45 mm blue load was applied at the healthy part of the base of the appendix, and an Endoloop PDS was applied onto the mesoappendix for control , the appendix was then retrieved in an Endo Catch bag, final survey was done of the abdomen and pelvis. Multiple 5 mm clips were applied onto the mesoappendix as well as the appendectomy staple line and a right lateral pelvic wall for minimal oozing. Final look laparoscopy was done showing no other abnormalities or injuries, all trocars were taken out under direct visualization after the supraumblical trocar site was closed by #1 PDS sutures under direct vision using fascial closure device ,followed by skin closure using 3 oh followed by 4-0 Monocryl of all trocar site incisions. infiltration of local lidocaine 2% was done to all incision sites.Dry dressing was applied. Count was completed at the end of the procedure for [place] , sponges and instruments Patient tolerated the procedure well and was transferred to the recovery area after extubation. I was present for the whole entire procedure
[2021-05-21] MEDS: ondansetron 2 mg/ML SDV 2 mL 4 MG IVP (09:58)
[2021-05-21] MEDS: HYDROmorphone 1 mg/mL INJ 1 mL 0.5 MG IVP (10:00)
[2021-05-21] MEDS: fentaNYL 50 mcg/mL INJ 2mL IVP (10:08)
[2021-05-21] MEDS: lactated ringers 1,000 ML 100 ML IV (10:41)
--- NOTE | 2021-05-21 11:37 | ANE.PACU2 ---
Inpatient post-anesthesia follow up: Airway intact: Yes Vital signs: Temperature 97.2 F Pulse Rate 70 Respiratory Rate 18 Blood Pressure 127/69 Pulse Oximetry 99 Oxygen Delivery Me thod Room Air Oxygen Flow Rate 6 Fraction of Inspir ed Oxygen Hydration adequate: Yes Nausea and vomiting: No Pain level: 3 Mental status: Baseline
[2021-05-21] MEDS: oxyCODONE-APAP 5-325 mg Tablet 1 TAB PO ×2 (13:36→20:36)
[2021-05-21] MEDS: lactated ringers 1,000 ML 150 ML IV (22:04)
[2021-05-22] VITALS (12 sets, daily range): BP systolic 106–147; BP diastolic 57–69; PULSE 75–100; RESP 16–18; TEMP 36.6–37.4; O2SAT 91–99
[2021-05-22] MEDS: piperacillin-tazobactam 3.375 GM in sodium chloride 0.9% (plus) 50 ML IV ×2 (01:34→08:53)
[2021-05-22] MEDS: lactated ringers 1,000 ML 150 ML IV (04:35)
[2021-05-22] MEDS: oxyCODONE-APAP 5-325 mg Tablet 1 TAB PO ×2 (04:35→10:58)
--- NOTE | 2021-05-22 06:02 | PC.NURSE ---
PATIENT ENCOURAGED TO SIT IN CHAIR THIS MORNING. VERBALIZED UNDERSTANDING.
[2021-05-22 07:12] LABS: Glucose Point of Care 87 mg/dL (70-110)
--- NOTE | 2021-05-22 08:11 | PM.SDS ---
Short Stay Summary Providers Date of Admit/Discharge: 05/23/21 Attending Provider: Eliazar Duncan MD Chief Complaint: R side abd pain HPI History of Present Illness Mr. Uday Shelton is a 20 year old male otherwise healthy presented to the emergency department with worsening right lower abdominal pain associated with nausea but no vomiting.? Pain started first at the periumbilical area then started shifting to the right side.? Describes it as sharp and then got worse.? Nothing seems to make it better or worse.? Patient denies any dysuria but he did have some looser stools last time he had a bowel movement was yesterday evening prior to coming to the ER.? He is healthy otherwise and only procedure he did have undergone uneventful wisdom tooth extraction under [facility] and he reports that hydrocodone does not work good for him but only Percocet. Patient reports history of DVT in the family for his grandparents but nothing has been tested for factor V and himself he never had blood clot.? No history of bleeding tendencies otherwise. ?Blood work was of insignificance.? Undergone a CT scan of the abdomen pelvis that did show 1. The appendix is mildly enlarged, measuring up to 6.5 mm in diameter. This mild enlargement of the appendix is a new finding when compared to 01/08/2020, and is suspicious for early appendicitis. There is no associated perforation or abscess. 2. No acute abnormality of the solid organs demonstrated. 3. No acute bowel abnormality identified. General surgery was consulted for further evaluation and patient was admitted to my service as an observation status and was placed on broad-spectrum antibiotics and was kept n.p.o. with IV fluid resuscitation with the plan to perform laparoscopic appendectomy. Review of Systems General: Reports: 10 or more systems reviewed and unremarkable except in HPI and below Home Meds/Allergies Home Medications and Allergies Allergies Allergy/AdvReac Type Severity Reaction Status Date / Time No Known Allergies Allergy Verified 05/21/21 11:31 PFSH Acute PFSH: Medical History No pertinent past medical history Surgical History No pertinent past surgical history Family History Other Bleeding disorder Vitals/I&O/Wt Last Vital Signs Temp 98.2 F 05/22/21 07:17 Pulse 76 05/22/21 07:17 Resp 16 05/22/21 07:17 BP 117/62 05/22/21 07:17 Pulse Ox 91 05/22/21 07:17 05/21/21 05/22/21 05/22/21 22:59 06:59 14:59 Intake Total 2411.667 / 2515.000 1077.5 / 3592.500 Output Total 100 / 110 Balance 2311.667 / 2405.000 1077.5 / 3482.500 Weight last 48 hrs Weight 239 lb 6.4 oz Weight 240 lb Physical Exam Narrative: patient is conscious alert oriented X3 No apparent distress BMI 32.5 Head and neck examination PERRLA no masses no cervical lymphadenopathy no jaundice Cardiac examination audible S1-S2 no murmurs no gallops no arrhythmias Chest is clear bilateral,abscence of Rhonchi or wheezes,no surgical emphysema Abdomen nontender except mildly at the incision sites nondistended soft no organomegaly guarding or rigidity/no signs of peritonitis Extremities no cyanosis no clubbing no edema Hospital Course Admission Diagnoses Acute appendicitis Hospital Course Patient overall did well status post uneventful laparoscopic appendectomy. Pain is under control and continue to have stable vital signs with adequate urine output tolerating p.o. intake. Ambulatory without assistance. Trending up leukocytosis likley postsurgical. Appendix did show inflammation without evidence of perforation. We will plan to send the patient empirically on Augmentin for 5 days. Patient passing gas and had a small bowel movement. Patient met the appropriate and safe criteria for discharge home. SSS Data Data Completed and Pending: Completed Studies During Hospitalization Category Date Time Status CT abdomen pelvis w con* [id number] Urge nt Cat Scan 05/20/21 18:29 Completed Pending at discharge Category Date Time Status ES surgery / GI i mages Routine Exams 05/21/21 08:04 Taken Blood Culture Sta t Lab 05/20/21 19:52 Results CBC Auto Diff [Co mplete Blood Count w/Auto] Routine Lab 05/22/21 07:44 Ordered CMP [Comprehensiv e Metabolic Panel] Routine Lab 05/22/21 07:45 Ordered Pathology: Surgic al [PTH] Routine Pth 05/21/21 09:42 Ordered Procedures Performed: Laparoscopic appendectomy Diagnoses at Discharge Discharge Diagnosis (1) Acute appendicitis: Status: Resolved Qualifiers: Acute appendicitis type: with localized peritonitis Appendicitis abscess presence: without abscess Appendicitis gangrene presence: without gangrene Appendicitis perforation presence: without perforation Qualified Code(s): K35.30 - Acute appendicitis with localized peritonitis, without perforation or gangrene Discharge Plan Discharge Patient Disposition: Home Condition: Stable Prescriptions: New Percocet 5-325 mg tablet 1 tab PO Q6H PRN (Reason: pain) Qty: 28 0RF Augmentin 500-125 mg tablet 1 tab PO Q12H Qty: 10 0RF Discharge Orders: Discharge Order (Routine); Ordered 05/22/21 Ordered By: Eliazar Duncan Referrals: Eliazar Duncan MD [Physician] - (Please call the Surgical Services office tomorrow to confirm a follow up appointment.) Discharge Diet: Advance as tolerated Discharge Activity: Limit activity as instructed Patient Instructions: Oxycodone/Acetaminophen (By mouth) (Percocet, Roxicet), Amoxicillin/Clavulanate Potassium (By mouth) (Augmentin, Augmentin..., Appendicitis (GEN), Opioid Safety, Post Anesthesia Care Activity Restrictions/Additional Instructions: 1. Patient can shower after 48 hours from surgery 2. Remove Dermabond 7 to 10 days after surgery, if there is a secondary dressing can take down after 48 hours. 3. Up and walking as tolerated 4. Do not lift more than 5 pounds first 2 weeks after surgery and not more than 25 pounds 6 to 8 weeks after surgery. 5. Do not operate heavy machinery or drive while using pain medications. 6.Contact the office or return to the ER for worsening nausea vomiting fevers or chills, or noticing any redness around incision sites or discharge. 7. Avoid constipation Attestations Medical Necessity Statement*: Patient requiring observation for perioperative care Time Spent in Patient Care*: greater than 30 min Specific Discharge Activities: Specific discharge activities: educating patient and educating and/or supporting family/caregiver Status at Discharge: Cognitive status at discharge: cognitively intact, Behavioral status at discharge: cooperative, Functional status at discharge: independent ambulation Overall status at discharge: patient is progressing back to baseline Quality Metrics Clinical Quality Measures: [ No reported AMI, CVA or VTE this stay] Coding Level of Care Code Acute [employer] Office Manager for g Fwd Diagnoses Acute appendicitis K35.30 Acute appendicitis type: with localized peritonitis Appendicitis abscess presence: without abscess Appendicitis gangrene presence: without gangrene Appendicitis perforation presence: without perforation
[2021-05-22] MEDS: morphine 4 mg/mL SDV 1 mL IVP ×2 (08:13→15:33)
[2021-05-22 08:44] LABS: Basophils % 0.1 %; Eosinophils % 0.1 %; Hematocrit 46.5 % (42.0-52.0); Hemoglobin 14.9 g/dL (11.7-16.6); Lymphocytes # 2.1 10^3/uL (1.5-6.5); Lymphocytes % 13.8 %; Mean Corpuscular Hemoglobin 29.4 pg (28.0-34.0); Mean Corpuscular Volume 91.9 fl (80-94); Mean Platelet Volume 10.1 fL (7.4-10.4); Monocytes # 1.1 10^3/uL (0.2-0.9); Monocytes % 7.2 %; Neutrophils # 11.83 10^3/uL (1.8-8.0); Neutrophils % 78.4 %; Nucleated Red Blood Cells % 0 %; Platelet Count 312 10^3/cmm (130-400); Red Blood Count 5.06 10^6/uL (4.1-5.3); Red Cell Distribution Width 12.6 % (12.1-15.1); White Blood Count 15.1 10^3/uL (4.5-13.0)
[2021-05-22 08:53] LABS: Albumin Level 3.9 g/dL (3.5-5.2); Alkaline Phosphatase 55 IU/L (40-130); Blood Urea Nitrogen 7 mg/dL (6-20); Calcium 9.5 mg/dL (8.5-10.5); Carbon Dioxide 18 mmol/L (22-29); Chloride 98 mmol/L (98-107); Globulin 2.9 g/dL (1.3-4.6); Glomerular Filtration Rate 107.6 mL/min (90-130); Glucose 116 mg/dL (65-115); Osmolality Calculated 269 mOsm/kg (285-295); Sodium 130 mmol/L (136-145); Total Bilirubin 0.6 mg/dL (0.15-1.2); Total Protein 6.8 g/dL (6.6-8.7)
[2021-05-22 08:56] LABS: Alanine Aminotransferase 22 U/L (0-41); Anion Gap 18.5 (5-19); Aspartate Amino Transferase 26 U/L (0-40); Potassium 4.5 mmol/L (3.5-5.1)
[2021-05-22] MEDS: psyllium powder Pkt 1 PACKET PO (14:08)
--- NOTE | 2021-05-22 17:01 | PC.NURSE ---
Discharge Note Patient discharged to private vehicle via ambulation accompanied by spouse. Discharge instructions reviewed with patient and spouse. 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 Patient belongings left with patient.
== END 2021-05-22 16:45 | disposition home or self-care (01) ==
LOC: ER 21:02 → MEDSURG 05-21 07:40
PROVIDERS: Emergency Medicine; Admitting Provider Surgery; Emergency Provider Physician Assistant; Visit Provider Surgery
PROC: 0DTJ4ZZ Resection of Appendix, Percutaneous Endoscopic Approach (ICD-10-PCS; CPT 44970; principal; 2021-05-21 08:30)
DX: K35.33 Acute appendicitis with perforation, localized peritonitis, and gangrene, with abscess (principal)
CPT/HCPCS: 44970; 36415; 36416; 74177; 80053; 81003; 82962; 83690; 85025; 87040; 88304; 96365; 96367; 96375; 96376; 99285; G0378; J1100; J1170; J1644; J2270; J2405; J2543; J2704; J2710; J3010; J3490; J7030; J7040; Q9967

== ENCOUNTER 2021-06-18 04:55 | Emergency (ER) | payer OTHER, SELFPAY ==
[2021-06-18 04:58] VITALS: BP 156/91; PULSE 82; RESP 18; TEMP 37.1; O2SAT 100; BMI 32.9
[2021-06-18 05:30] VITALS: BP 131/76; PULSE 88; RESP 18; TEMP 36.6; O2SAT 99
--- NOTE | 2021-06-18 05:38 | CTR_ITS ---
PROCEDURE INFORMATION: Exam: CT Abdomen And Pelvis With Contrast Exam date and time: 06/18/2021 6:14 AM Age: 20 years old Clinical indication: Abdominal pain; Localized; Right lower quadrant (rlq); Prior surgery; Surgery date: <1 month; Surgery type: Appy; Patient HX: PT lifting on something heavy, rlq pain; Additional info: Lower abd pain 1 mo post appendectomy TECHNIQUE: Imaging protocol: Computed tomography of the abdomen and pelvis with contrast. Radiation optimization: All CT scans at this facility use at least one of these dose optimization techniques: automated exposure control; mA and/or kV adjustment per patient size (includes targeted exams where dose is matched to clinical indication); or iterative reconstruction. Contrast material: OMNI 300; Contrast volume: 95 ml; Contrast route: INTRAVENOUS (IV); COMPARISON: CT abdomen pelvis w con* [id number] 05/20/2021 6:59 PM RADIATION DOSE METRICS: Total DLP (mGy-cm): 1710.66 FINDINGS: Liver: Normal. No mass. Gallbladder and bile ducts: Normal. No calcified stones. No ductal dilation. Pancreas: Normal. No ductal dilation. Spleen: Normal. No splenomegaly. Adrenal glands: Normal. No mass. Kidneys and ureters: Normal. No hydronephrosis. Stomach and bowel: Unremarkable. No obstruction. No mucosal thickening. Appendix: Appendectomy. Intraperitoneal space: Unremarkable. No free air. No significant fluid collection. Vasculature: Unremarkable. No abdominal aortic aneurysm. Lymph nodes: Unremarkable. No enlarged lymph nodes. Urinary bladder: Unremarkable as visualized. Reproductive: Unremarkable as visualized. Bones/joints: Unremarkable. No acute fracture. Soft tissues: Unremarkable. CT/CT abdomen pelvis w con* [id number] IMPRESSION: No acute findings.
[2021-06-18 05:54] LABS: Add Urine Microscopic? NO; Charge for UA Resulting for Rev
[2021-06-18 06:11] LABS: Bilirubin Urine Neg (Negative); Blood Urine Neg (Negative); Glucose Urine UA Norm (Normal); Ketones Urine Negative (Negative); Leukocyte Esterase Urine Negative (Negative); Nitrate Urine Negative (Negative); Protein Urine Neg (Negative); Specific Gravity, Urine 1.015 (1.005-1.030); Sulfosalicylic Acid Urine Negative (Negative); Urine Appearance Clear (CLEAR); Urine Color Yellow (Yellow); Urobilinogen Urine Norm (Negative); pH Urine 8 (5-7)
[2021-06-18] MEDS: iohexol 300 mg/mL 100 mL Btl IV (06:13)
[2021-06-18 06:14] LABS: Basophils % 0.2 %; Eosinophils # 0.2 10^3/uL (0.0-0.8); Eosinophils % 1.9 %; Hematocrit 45.9 % (42.0-52.0); Hemoglobin 15.1 g/dL (11.7-16.6); Lymphocytes # 3.4 10^3/uL (1.5-6.5); Lymphocytes % 37.9 %; Mean Corpuscular HGB Conc 32.9 g/dL (30.0-36.0); Mean Corpuscular Hemoglobin 28.6 pg (28.0-34.0); Mean Corpuscular Volume 86.9 fl (80-94); Mean Platelet Volume 10.1 fL (7.4-10.4); Monocytes # 0.8 10^3/uL (0.2-0.9); Monocytes % 8.9 %; Neutrophils # 4.57 10^3/uL (1.8-8.0); Neutrophils % 50.9 %; Nucleated Red Blood Cells % 0 %; Platelet Count 308 10^3/cmm (130-400); Red Blood Count 5.28 10^6/uL (4.1-5.3); Red Cell Distribution Width 12.4 % (12.1-15.1)
--- NOTE | 2021-06-18 06:17 | W.ED.GENADLT ---
Documented by User: Lucien Knight DO 06/18/21 07:13 HPI - General Adult General: Chief complaint: General Medical Stated complaint: post op on may 21, dizziness, pain, numbness Time Seen by Provider: 06/18/21 05:09 Source: patient and family History of Present Illness: 20-year-old male who had an appendectomy 3 weeks ago. He presents after pulling on a hose at work, after which he felt pain in his abdomen, radiating across into his back and into his hips bilaterally. He was nauseated, diaphoretic. Nausea has improved to some degree, diaphoresis is improved, but he still has pain. His brought him to the ER, as she was concerned about internal bleeding Onset (ago): hour(s) (1.5) Location: abdomen Radiation: flank Severity: moderate Quality: aching Pain Consistency: constant Relieving factors: none Exacerbating factors: movement Associated symptoms: Reports nausea; Deny chest pain, cough, fevers/chills, headache(s), short of breath or vomiting Review of Systems Const: Denies: fever(s) or chills Card: Denies: chest pain GI: Reports: abdominal pain and nausea; Denies: vomiting : Denies: flank pain or difficulty urinating Neuro: Denies: headache(s) PFSH ED PFSH: Medical History No pertinent past medical history Surgical History No pertinent past surgical history Family History Other Anesthesia complication Bleeding disorder Dementia Denies family history of Diabetes CAD (coronary artery disease) Chronic kidney disease (CKD) Lung disease Cancer Hypertension Stroke Social History Smoking and tobacco status: current every day smoker Alcohol intake: never Lives independently: Yes Household members: spouse and family Marital status: Physical Exam Const: GENERAL APPEARANCE: cooperative; not comfortable and not frail appearing ORIENTATION/CONSCIOUSNESS: Yes awake, Yes oriented to person, Yes oriented to place and Yes oriented to time HENMT: COMMON NORMALS: normocephalic, atraumatic and Normal external nose present HEAD & SCALP: normocephalic and atraumatic NOSE: Normal external nose present Eye: COMMON NORMALS: Equal, round and reactive pupils present and EOMs intact bilaterally PUPIL: Yes Equal, round and reactive pupils present Chest: COMMONS NORMALS: negative for normal inspection of the chest Resp: COMMON NORMALS: normal respiratory effort, No use of accessory muscles and clear to auscultation bilaterally AUSCULTATION: clear to auscultation bilaterally Cardio: COMMON NORMALS: regular rate and regular rhythm RATE: regular rate RHYTHM: regular rhythm GI: COMMON NORMALS: Normal to inspection, nondistended, normoactive bowel sounds present PALPATION: Yes Tenderness to palpation present (GI) (diffuse) : BLADDER/KIDNEY EXAM: Yes CVA tenderness on the right Back/Pelvis: GENERAL BACK: Yes CVA tenderness Neuro: SENSORIUM/ORIENTATION: Yes oriented to person, Yes oriented to place and Yes oriented to time Course Vital Signs: Vital signs: Vital Signs Temperature 97.8 F 06/18/21 05:30 Pulse Rate 74 06/18/21 07:17 Respiratory Rate 14 06/18/21 07:17 Blood Pressure 118/74 06/18/21 07:17 Pulse Oximetry 97 06/18/21 07:17 [facility] - General Adult Medical Decision Making Hemoglobin is 15. CT of the abdomen is completed, awaiting read. He will be checked out to Dr. Vargas at shift change. Lab Data : 06/18/21 06:10 06/18/21 06:10 Radiology Impressions Abdomen/Pelvis CT 06/18/21 05:38 IMPRESSION: No acute findings. Laboratory Results WBC 9.0 10^3/uL (4.5-13.0) 06/18/21 06:10 RBC 5.28 10^6/uL (4.1-5.3) 06/18/21 06:10 Hgb 15.1 g/dL (11.7-16.6) 06/18/21 06:10 Hct 45.9 % (42.0-52.0) 06/18/21 06:10 MCV 86.9 fl (80-94) 06/18/21 06:10 MCH 28.6 pg (28.0-34.0) 06/18/21 06:10 MCHC 32.9 g/dL (30.0-36.0) 06/18/21 06:10 RDW 12.4 % (12.1-15.1) 06/18/21 06:10 Plt Count 308 10^3/cmm (130-400) 06/18/21 06:10 MPV 10.1 fL (7.4-10.4) 06/18/21 06:10 Neut % (Auto) 50.9 % 06/18/21 06:10 Lymph % (Auto) 37.9 % 06/18/21 06:10 Edmunds % (Auto) 8.9 % 06/18/21 06:10 Eos % (Auto) 1.9 % 06/18/21 06:10 Baso % (Auto) 0.2 % 06/18/21 06:10 Neut # (Auto) 4.57 10^3/uL (1.8-8.0) 06/18/21 06:10 Lymph # (Auto) 3.4 10^3/uL (1.5-6.5) 06/18/21 06:10 Edmunds # (Auto) 0.8 10^3/uL (0.2-0.9) 06/18/21 06:10 Eos # (Auto) 0.2 10^3/uL (0.0-0.8) 06/18/21 06:10 Baso # (Auto) 0.0 10^3/uL (0.0-0.1) 06/18/21 06:10 Nucleated RBC % (auto) 0 % 06/18/21 06:10 Nucleated RBCs # 0.0 /100WBC 06/18/21 06:10 Sodium 139 mmol/L (136-145) 06/18/21 06:10 Potassium 3.7 mmol/L (3.5-5.1) 06/18/21 06:10 Chloride 98 mmol/L (98-107) 06/18/21 06:10 Carbon Dioxide 27 mmol/L (22-29) 06/18/21 06:10 Anion Gap 17.7 (5-19) 06/18/21 06:10 BUN 10 mg/dL (6-20) 06/18/21 06:10 Creatinine 0.9 mg/dL (0.7-1.2) 06/18/21 06:10 GFR Calculation 107.6 mL/min (90-130) 06/18/21 06:10 Glucose 92 mg/dL (65-115) 06/18/21 06:10 Calculated Osmolality 287 mOsm/kg (285-295) 06/18/21 06:10 Calcium 9.9 mg/dL (8.5-10.5) 06/18/21 06:10 Total Bilirubin 0.4 mg/dL (0.15-1.2) 06/18/21 06:10 AST 40 U/L (0-40) 06/18/21 06:10 ALT 82 U/L (0-41) H 06/18/21 06:10 Alkaline Phosphatase 65 IU/L (40-130) 06/18/21 06:10 C-Reactive Protein 4.6 mg/L (0.0-4.9) 06/18/21 06:10 Total Protein 7.6 g/dL (6.6-8.7) 06/18/21 06:10 Albumin 5.0 g/dL (3.5-5.2) 06/18/21 06:10 Globulin 2.6 g/dL (1.3-4.6) 06/18/21 06:10 Lipase 15 U/L (13-60) 06/18/21 06:10 Urine Color Yellow (Yellow) 06/18/21 05:43 Urine Appearance Clear (CLEAR) 06/18/21 05:43 Urine pH 8 (5-7) H 06/18/21 05:43 Ur Specific [place] 1.015 (1.005-1.030) 06/18/21 05:43 Urine Protein Neg (Negative) 06/18/21 05:43 Urine Glucose (UA) Norm (Normal) 06/18/21 05:43 Urine Ketones Negative (Negative) 06/18/21 05:43 Urine Blood Neg (Negative) 06/18/21 05:43 Urine Nitrate Negative (Negative) 06/18/21 05:43 Urine Bilirubin Neg (Negative) 06/18/21 05:43 Prot Sulfosalicylic Acd Negative (Negative) 06/18/21 05:43 Urine Urobilinogen Norm mg/dL (Negative) 06/18/21 05:43 Ur Leukocyte Esterase Negative (Negative) 06/18/21 05:43 Discharge Plan Discharge Patient Disposition: Home Clinical Impression: Abdominal pain Condition: Stable Prescriptions: No Action No Known Home Medications 0RF Discharge Orders: Discharge ED (Routine); Ordered 05/08/22 Ordered By: Raji Vargas Discharge Diet: Advance as tolerated Discharge Activity: Resume usual activity Patient Instructions: Abdominal Pain (ED) Stand Alone Forms: Work/School Release Coding Level of Care Code ED Player Manager for Chg Fwd Exam Comprehensive Documented by User: Raji Vargas MD 06/18/21 07:37 HPI - General Adult General: Chief complaint: General Medical Stated complaint: post op on may 21, dizziness, pain, numbness Time Seen by Provider: 06/18/21 05:09 [facility] ED PFSH: Medical History No pertinent past medical history Surgical History No pertinent past surgical history Family History Other Anesthesia complication Bleeding disorder Dementia Denies family history of Diabetes CAD (coronary artery disease) Chronic kidney disease (CKD) Lung disease Cancer Hypertension Stroke Social History Smoking and tobacco status: current every day smoker Alcohol intake: never Lives independently: Yes Household members: spouse and family Marital status: Course Vital Signs: Vital signs: Vital Signs Temperature 97.8 F 06/18/21 05:30 Pulse Rate 74 06/18/21 07:17 Respiratory Rate 14 06/18/21 07:17 Blood Pressure 118/74 06/18/21 07:17 Pulse Oximetry 97 06/18/21 07:17 MDM - General Adult Medical Decision Making Hemoglobin is 15. CT of the abdomen is completed, awaiting read. He will be checked out to Dr. Vargas at shift change. Patient presents here with abdominal pain likely postop pain patient's CT scan is normal blood work is normal he feels improved he is to follow-up with his surgeon and return if worsening he understands agrees to plan. Lab Data : 06/18/21 06:10 06/18/21 06:10 Radiology Impressions Abdomen/Pelvis CT 06/18/21 05:38 IMPRESSION: No acute findings. Laboratory Results WBC 9.0 10^3/uL (4.5-13.0) 06/18/21 06:10 RBC 5.28 10^6/uL (4.1-5.3) 06/18/21 06:10 Hgb 15.1 g/dL (11.7-16.6) 06/18/21 06:10 Hct 45.9 % (42.0-52.0) 06/18/21 06:10 MCV 86.9 fl (80-94) 06/18/21 06:10 MCH 28.6 pg (28.0-34.0) 06/18/21 06:10 MCHC 32.9 g/dL (30.0-36.0) 06/18/21 06:10 RDW 12.4 % (12.1-15.1) 06/18/21 06:10 Plt Count 308 10^3/cmm (130-400) 06/18/21 06:10 MPV 10.1 fL (7.4-10.4) 06/18/21 06:10 Neut % (Auto) 50.9 % 06/18/21 06:10 Lymph % (Auto) 37.9 % 06/18/21 06:10 Edmun[place] % (Auto) 8.9 % 06/18/21 06:10 Eos % (Auto) 1.9 % 06/18/21 06:10 Baso % (Auto) 0.2 % 06/18/21 06:10 Neut # (Auto) 4.57 10^3/uL (1.8-8.0) 06/18/21 06:10 Lymph # (Auto) 3.4 10^3/uL (1.5-6.5) 06/18/21 06:10 Edmunds # (Auto) 0.8 10^3/uL (0.2-0.9) 06/18/21 06:10 Eos # (Auto) 0.2 10^3/uL (0.0-0.8) 06/18/21 06:10 Baso # (Auto) 0.0 10^3/uL (0.0-0.1) 06/18/21 06:10 Nucleated RBC % (auto) 0 % 06/18/21 06:10 Nucleated RBCs # 0.0 /100WBC 06/18/21 06:10 Sodium 139 mmol/L (136-145) 06/18/21 06:10 Potassium 3.7 mmol/L (3.5-5.1) 06/18/21 06:10 Chloride 98 mmol/L (98-107) 06/18/21 06:10 Carbon Dioxide 27 mmol/L (22-29) 06/18/21 06:10 Anion Gap 17.7 (5-19) 06/18/21 06:10 BUN 10 mg/dL (6-20) 06/18/21 06:10 Creatinine 0.9 mg/dL (0.7-1.2) 06/18/21 06:10 GFR Calculation 107.6 mL/min (90-130) 06/18/21 06:10 Glucose 92 mg/dL (65-115) 06/18/21 06:10 Calculated Osmolality 287 mOsm/kg (285-295) 06/18/21 06:10 Calcium 9.9 mg/dL (8.5-10.5) 06/18/21 06:10 Total Bilirubin 0.4 mg/dL (0.15-1.2) 06/18/21 06:10 AST 40 U/L (0-40) 06/18/21 06:10 ALT 82 U/L (0-41) H 06/18/21 06:10 Alkaline Phosphatase 65 IU/L (40-130) 06/18/21 06:10 C-Reactive Protein 4.6 mg/L (0.0-4.9) 06/18/21 06:10 Total Protein 7.6 g/dL (6.6-8.7) 06/18/21 06:10 Albumin 5.0 g/dL (3.5-5.2) 06/18/21 06:10 Globulin 2.6 g/dL (1.3-4.6) 06/18/21 06:10 Lipase 15 U/L (13-60) 06/18/21 06:10 Urine Color Yellow (Yellow) 06/18/21 05:43 Urine Appearance Clear (CLEAR) 06/18/21 05:43 Urine pH 8 (5-7) H 06/18/21 05:43 Ur Specific [place] 1.015 (1.005-1.030) 06/18/21 05:43 Urine Protein Neg (Negative) 06/18/21 05:43 Urine Glucose (UA) Norm (Normal) 06/18/21 05:43 Urine Ketones Negative (Negative) 06/18/21 05:43 Urine Blood Neg (Negative) 06/18/21 05:43 Urine Nitrate Negative (Negative) 06/18/21 05:43 Urine Bilirubin Neg (Negative) 06/18/21 05:43 Prot Sulfosalicylic Acd Negative (Negative) 06/18/21 05:43 Urine Urobilinogen Norm mg/dL (Negative) 06/18/21 05:43 Ur Leukocyte Esterase Negative (Negative) 06/18/21 05:43 Discharge Plan Discharge Patient Disposition: Home Clinical Impression: Abdominal pain Condition: Stable Prescriptions: No Action No Known Home Medications 0RF Discharge Orders: Discharge ED (Routine); Ordered 06/18/21 Ordered By: Raji Vargas Discharge Diet: Advance as tolerated Discharge Activity: Resume usual activity Patient Instructions: Abdominal Pain (ED) Stand Alone Forms: Work/School Release Coding Level of Care Code ED Player Manager for Pranay Fwd Exam Comprehensive
[2021-06-18] MEDS: ondansetron 2 mg/ML SDV 2 mL 4 MG IVP (06:30)
[2021-06-18 06:31] VITALS: RESP 18; O2SAT 98
[2021-06-18 06:31] LABS: Alanine Aminotransferase 82 U/L (0-41); Alkaline Phosphatase 65 IU/L (40-130); Anion Gap 17.7 (5-19); Aspartate Amino Transferase 40 U/L (0-40); Blood Urea Nitrogen 10 mg/dL (6-20); C Reactive Protein 4.6 mg/L (0.0-4.9); Calcium 9.9 mg/dL (8.5-10.5); Carbon Dioxide 27 mmol/L (22-29); Chloride 98 mmol/L (98-107); Globulin 2.6 g/dL (1.3-4.6); Glomerular Filtration Rate 107.6 mL/min (90-130); Glucose 92 mg/dL (65-115); Lipase 15 U/L (13-60); Osmolality Calculated 287 mOsm/kg (285-295); Potassium 3.7 mmol/L (3.5-5.1); Sodium 139 mmol/L (136-145); Total Bilirubin 0.4 mg/dL (0.15-1.2); Total Protein 7.6 g/dL (6.6-8.7)
[2021-06-18] MEDS: morphine 4 mg/mL SDV 1 mL IVP (06:31)
--- NOTE | 2021-06-18 07:16 | PC.NURSE ---
Patient in bed, reports pain is not 4/10. Patient denies any needs at this time. Family at bedside, vitals stable, instructed to use call light with any questions, concerns or needs.
[2021-06-18 07:17] VITALS: BP 118/74; PULSE 74; RESP 14; O2SAT 97
[2021-06-18 07:44] VITALS: BP 123/62; PULSE 80; RESP 16; O2SAT 98
== END 2021-06-18 07:46 | disposition home or self-care (01) ==
PROVIDERS: Emergency Medicine; Emergency Provider Emergency Medicine
DX: R10.9 Unspecified abdominal pain (principal); Z98.890 Other specified postprocedural states; Z90.89 Acquired absence of other organs
CPT/HCPCS: 74177; 80053; 81003; 83690; 85025; 86140; 96374; 96375; 99284; J2270; J2405; Q9967

== ENCOUNTER 2021-08-23 15:30 | Emergency (ER) | payer OTHER, SELFPAY ==
[2021-08-23 15:44] VITALS: BP 130/62; PULSE 99; RESP 14; TEMP 36.7; O2SAT 99
--- NOTE | 2021-08-23 15:51 | XRR_ITS ---
PROCEDURE INFORMATION: Exam: XR Left Shoulder Exam date and time: 08/23/2021 4:34 PM Age: 20 years old Clinical indication: Pain; Shoulder; Left; Patient HX: Trauma not specified TECHNIQUE: Imaging protocol: Radiologic exam of the Left shoulder. Views: 2 or more views. COMPARISON: No relevant prior studies available. FINDINGS: Bones/joints: Normal. Soft tissues: Normal. XR/XR shoulder LT min 2V* [id number] IMPRESSION: No acute findings.
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
== END 2021-08-23 20:04 | disposition home or self-care (01) ==
PROVIDERS: Emergency Provider Nurse Practitioner Family
DX: S40.012A Contusion of left shoulder, initial encounter (principal); F17.210 Nicotine dependence, cigarettes, uncomplicated; V28.4XXA Motorcycle driver injured in noncollision transport accident in traffic accident, initial encounter
CPT/HCPCS: 73030; 99283

== ENCOUNTER → 2022-01-14 12:50 | Outpatient (BNVA) | payer OTHER, SELFPAY | PROVIDERS: Visit Provider Nurse Practitioner Family | DX: J11.1 Influenza due to unidentified influenza virus with other respiratory manifestations (principal) | CPT/HCPCS: 87400 ==

== ENCOUNTER 2022-07-17 14:59 | Emergency (ER) | payer OTHER, SELFPAY ==
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
[2022-07-17 15:31] VITALS: BP 117/71; PULSE 79; RESP 16; TEMP 36.8; O2SAT 100; BMI 29.2
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
[2022-07-17 16:11] VITALS: BP 148/80; PULSE 82; RESP 14; O2SAT 100
[2022-07-17 16:23] LABS: Basophils % 0.3 %; Eosinophils # 0.1 10^3/uL (0.0-0.8); Eosinophils % 0.5 %; Hematocrit 44.9 % (42.0-52.0); Hemoglobin 14.6 g/dL (11.7-16.6); Lymphocytes # 2.3 10^3/uL (0.8-4.8); Lymphocytes % 21.1 %; Mean Corpuscular HGB Conc 32.5 g/dL (30.0-36.0); Mean Corpuscular Hemoglobin 28.1 pg (28.0-34.0); Mean Corpuscular Volume 86.5 fl (80-94); Mean Platelet Volume 9.7 fL (7.4-10.4); Monocytes # 0.7 10^3/uL (0.2-0.9); Monocytes % 6.4 %; Neutrophils # 7.91 10^3/uL (1.8-7.7); Neutrophils % 71.5 %; Nucleated Red Blood Cells % 0 %; Platelet Count 356 10^3/cmm (130-400); Red Blood Count 5.19 10^6/uL (4.1-5.3); Red Cell Distribution Width 12.3 % (12.1-15.1); White Blood Count 11.1 10^3/uL (4.0-10.0)
[2022-07-17 16:48] LABS: Anion Gap 16.1 (5-19); Blood Urea Nitrogen 14 mg/dL (6-20); Calcium 9.7 mg/dL (8.5-10.5); Carbon Dioxide 26 mmol/L (22-29); Chloride 100 mmol/L (98-107); Glucose 78 mg/dL (65-115); Osmolality Calculated 285 mOsm/kg (285-295); Potassium 4.1 mmol/L (3.5-5.1); Sodium 138 mmol/L (136-145)
--- NOTE | 2022-07-20 12:18 | DCPLANNER ---
[employer] called patient due to no primary care physician - no answer at this time.
== END 2022-07-17 17:27 | disposition home or self-care (01) ==
PROVIDERS: Emergency Provider Family Medicine
DX: S09.90XA Unspecified injury of head, initial encounter (principal); W31.9XXA Contact with unspecified machinery, initial encounter; Y99.0 Civilian activity done for income or pay
CPT/HCPCS: 36415; 70450; 70486; 72125; 80048; 85025; 99284

== ENCOUNTER 2022-10-06 22:14 | Emergency (ER) | payer SELFPAY ==
[2022-10-06 22:33] VITALS: BP 117/74; PULSE 111; RESP 18; TEMP 36.4; O2SAT 99; BMI 30.5
[2022-10-06 22:37] VITALS: BP 140/103; PULSE 110; RESP 32; TEMP 36.8; O2SAT 95
--- NOTE | 2022-10-06 23:15 | XRR_ITS ---
PROCEDURE INFORMATION: Exam: XR Chest Exam date and time: 10/06/2022 11:41 PM Age: 22 years old Clinical indication: Pain; Shortness of breath; Chest pressure; Patient HX: Cp with SOB. ; Additional info: Chest pain TECHNIQUE: Imaging protocol: Radiologic exam of the chest. Views: 1 view. COMPARISON: CT cervical spin wo con* [id number] 07/17/2022 4:20 PM FINDINGS: Lungs: Unremarkable. No consolidation. Pleural spaces: Unremarkable. No pleural effusion. No pneumothorax. Heart/Mediastinum: Unremarkable. No cardiomegaly. Bones/joints: Unremarkable. XR/XR chest 1V portable [id number] IMPRESSION: No acute findings.
[2022-10-06] MEDS: ketorolac 30 mg/mL INJ 15 MG IVP (23:33)
[2022-10-06] MEDS: sodium chloride 0.9% 1,000 ML 999 ML IV (23:35)
[2022-10-06 23:39] LABS: Basophils % 0.4 %; Eosinophils # 0.1 10^3/uL (0.0-0.8); Hematocrit 45.9 % (37-53); Lymphocytes # 3.7 10^3/uL (0.8-4.8); Lymphocytes % 35.4 %; Mean Corpuscular HGB Conc 33.6 g/dL (30-55); Mean Corpuscular Hemoglobin 28.4 pg (27-33); Mean Corpuscular Volume 84.7 fl (82-101); Mean Platelet Volume 9.8 fL (7.4-10.4); Monocytes # 0.8 10^3/uL (0.2-0.9); Monocytes % 7.5 %; Neutrophils # 5.81 10^3/uL (1.8-7.7); Neutrophils % 55.3 %; Nucleated Red Blood Cells % 0 %; Platelet Count 332 10^3/cmm (157-399); Red Blood Count 5.42 10^6/uL (3.85-5.65); Red Cell Distribution Width 12.6 % (12.1-15.1); White Blood Count 10.49 10^3/uL (3.29-11.43)
[2022-10-06 23:54] LABS: Alanine Aminotransferase 32 U/L (0-41); Albumin Level 5.1 g/dL (3.5-5.2); Alcohol Level 160 mg/dL (0-10); Alkaline Phosphatase 59 U/L (40-130); Anion Gap 21.3 (5-19); Aspartate Amino Transferase 24 U/L (0-40); Blood Urea Nitrogen 11 mg/dL (6-20); Calcium 10.1 mg/dL (8.5-10.5); Carbon Dioxide 22 mmol/L (22-29); Chloride 102 mmol/L (98-107); Globulin 2.9 g/dL (1.3-4.6); Glomerular Filtration Rate 105.5 mL/min (90-130); Glucose 90 mg/dL (65-115); Magnesium 2.3 mg/dL (1.7-2.3); Osmolality Calculated 293 mOsm/kg (285-295); Potassium 3.3 mmol/L (3.5-5.1); Sodium 142 mmol/L (136-145); Total Bilirubin 0.3 mg/dL (0.15-1.2)
[2022-10-07] MEDS: potassium chloride ER 20 mEq Tablet 40 MEQ PO (00:37)
[2022-10-07] MEDS: sodium chloride 0.9% 1,000 ML 999 ML IV (00:37)
[2022-10-07 01:51] LABS: Add Urine Microscopic? NO; Charge for UA Resulting for Rev
[2022-10-07 01:54] LABS: Bilirubin Urine Neg (Negative); Blood Urine Neg (Negative); Glucose Urine UA Norm (Normal); Ketones Urine 1+ (Negative); Leukocyte Esterase Urine Negative (Negative); Nitrate Urine Negative (Negative); Protein Urine Neg (Negative); Specific Gravity, Urine 1.005 (1.005-1.030); Urine Appearance Clear (CLEAR); Urine Color Colorless (Yellow); Urobilinogen Urine Norm (Negative); pH Urine 7 (5-7)
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
== END 2022-10-07 02:10 | disposition home or self-care (01) ==
PROVIDERS: Emergency Provider Emergency Medicine
DX: R06.4 Hyperventilation (principal); F10.129 Alcohol abuse with intoxication, unspecified; Y90.6 Blood alcohol level of 120-199 mg/100 ml; F17.210 Nicotine dependence, cigarettes, uncomplicated
CPT/HCPCS: 71045; 80053; 80307; 81003; 83735; 85025; 96361; 96374; 99284; J1885; J7030

== ENCOUNTER 2022-10-29 17:43 | Emergency (ER) | payer SELFPAY ==
[2022-10-29 17:53] VITALS: BP 179/110; PULSE 100; RESP 19; TEMP 37.1; O2SAT 98; BMI 27.8
[2022-10-29 18:06] VITALS: BP 132/84; PULSE 101; RESP 17; O2SAT 99
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
[2022-10-29 18:39] VITALS: BP 132/73; PULSE 92; RESP 17; O2SAT 98
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
[2022-10-29] MEDS: fentaNYL 50 mcg/mL INJ 2mL IVP ×2 (18:44→19:57)
[2022-10-29 20:57] VITALS: RESP 18; O2SAT 96
[2022-10-29] MEDS: oxyCODONE-APAP 5-325 mg Tablet 1 TAB PO (20:57)
[2022-10-29] MEDS: predniSONE 20 mg Tablet 40 MG PO (20:57)
[2022-10-29] MEDS: oxyCODONE-APAP 5-325 mg Tablet 2 TAB PO (21:00)
[2022-10-29 21:09] VITALS: BP 116/67; PULSE 76; RESP 18; O2SAT 96
== END 2022-10-29 21:12 | disposition home or self-care (01) ==
PROVIDERS: Emergency Provider Emergency Medicine
DX: S33.39XA Dislocation of other parts of lumbar spine and pelvis, initial encounter (principal); F17.210 Nicotine dependence, cigarettes, uncomplicated; V29.408A Other motorcycle driver injured in collision with unspecified motor vehicles in traffic accident, initial encounter
CPT/HCPCS: 72125; 72128; 72131; 72192; 96374; 96376; 99285; J3010; J7512

== ENCOUNTER 2023-01-23 16:31 | Outpatient (CLI) | payer OTHER, SELFPAY ==
--- NOTE | 2023-01-23 16:45 | MR_ITS ---
WS: [id number] MRI LUMBAR SPINE NONCONTRAST TECHNIQUE: Sagittal T1, T2 and STIR imaging. Axial T1 and T2 imaging. CLINICAL INFORMATION: low back pain COMPARISON: CT 09/29/2022 FINDINGS: Lumbar curve. No acute compression. No high-grade central canal stenosis. L1-L2: Normal. L2-L3: Normal. L3-L4: Mild LEFT and no significant RIGHT foraminal narrowing. Spinal canal is patent. L4-L5: Mild annular bulging. Slight impingement traversing L5 nerve roots bilaterally. Mild facet art hropathy. Mild LEFT and no significant RIGHT foraminal narrowing. Tiny annular fissure at this level. L5-S1: RIGHT paracentral protrusion with impingement RIGHT subarticular recess and traversing RIGHT S 1 nerve root. Mild central canal stenosis at this level. Mild RIGHT greater than LEFT foraminal narro wing. Moderate arthropathy at this level. Visualized pelvic bony structures: Normal. Paravertebral soft tissues: Normal. Tiny disc protrusion in the lower thoracic spine at T9-T10. A few tiny protrusions in the cervical spine on the psychiatric np imaging at C4-C5 and C5-C6. A few small protrusions in the thoracic spine at T7-T8 T8-T9 and T9-T10 with slight indentation on th e thoracic cord.. This can be further evaluated with thoracic spine MRI. IMPRESSION: 1. Mild lumbar curve. No acute compression. 2. RIGHT paracentral protrusion L5-S1 impinges the RIGHT S1 nerve root with mild central canal steno sis. Mild RIGHT greater than LEFT L5-S1 foraminal narrowing. 3. Mild annular bulge L4-5 with a small annular fissure. Slight impingement traversing L5 nerve root s with mild LEFT foraminal narrowing. 4. A few small protrusions in the thoracic spine at T7-T8 T8-T9 and T9-T10 with slight indentation o n the thoracic cord. This can be further evaluated with thoracic spine MRI.
== END 2023-01-23 16:32 | disposition home or self-care (01) ==
LOC: RAD 16:31
PROVIDERS: PCP Family Medicine Adult Medicine; Visit Provider Orthopaedic Surgery
DX: M51.27 Other intervertebral disc displacement, lumbosacral region (principal); M79.606 Pain in leg, unspecified; M48.07 Spinal stenosis, lumbosacral region; M51.36 Other intervertebral disc degeneration, lumbar region; M51.24 Other intervertebral disc displacement, thoracic region
CPT/HCPCS: 72148

== ENCOUNTER 2023-04-04 10:44 | Outpatient (CLI) | payer OTHER, SELFPAY ==
--- NOTE | 2023-04-04 10:57 | XR_ITS ---
WS: [id number] Examination: XR chest 2V* [id number] Reason for Exam: REGULATED PROGRAM MONITORING Date: 04/04/2023 Comparison: 10/06/2022 Findings: The cardiomediastinal silhouette is within normal limits. There is no effusion or consolidation. Impression: No acute lung process is identified.
== END 2023-04-04 10:45 | disposition home or self-care (01) ==
PROVIDERS: PCP Family Medicine Adult Medicine; Visit Provider Student in an Organized Health Care Education/Training Program
DX: Z01.89 Encounter for other specified special examinations (principal)
CPT/HCPCS: 71046

== ENCOUNTER → 2023-04-16 17:24 | Outpatient (BNVA) | payer OTHER, SELFPAY | PROVIDERS: PCP Family Medicine Adult Medicine; Visit Provider Orthopaedic Surgery | DX: M54.50 Low back pain, unspecified (principal); M79.606 Pain in leg, unspecified; Z79.899 Other long term (current) drug therapy | CPT/HCPCS: 36415; 80053; 81003; 85025 ==

== ENCOUNTER 2023-04-19 19:46 | Emergency (ER) | payer OTHER, SELFPAY ==
[2023-04-19 19:47] VITALS: BP 127/64; PULSE 78; RESP 14; TEMP 36.6; O2SAT 100
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
[2023-04-19 22:10] VITALS: BP 127/64; PULSE 78; RESP 14; TEMP 36.6; O2SAT 100
== END 2023-04-19 22:16 | disposition home or self-care (01) ==
PROVIDERS: Emergency Provider Physician Assistant; PCP Family Medicine Adult Medicine
DX: M54.16 Radiculopathy, lumbar region (principal); Z72.0 Tobacco use
CPT/HCPCS: 99283

== ENCOUNTER 2023-05-03 05:40 | Day surgery (SDC) | payer OTHER, SELFPAY ==
[2023-05-03] VITALS (12 sets, daily range): BP systolic 91–136; BP diastolic 52–90; PULSE 63–92; RESP 12–18; TEMP 36.1–36.6; O2SAT 97–100; BMI 29.0
--- NOTE | 2023-05-03 | XR_ITS ---
WS: [id number] Exam: XR lumbar spine 2-3V* [id number] Date/Time of Exam: 05/03/2023 12:00 AM Reason For Exam: JEFFREY PICS AP and lateral images of the lower lumbar spine are obtained for preoperative localization purposes.
[2023-05-03] MEDS: sodium chloride 0.9% 1,000 ML 30 ML IV (06:09)
--- NOTE | 2023-05-03 06:34 | W.PM.OPSUD ---
Surgery/Procedure H&P Update DATE OF PROCEDURE: May 03, 2023 DATE H&P PERFORMED: 04/25/23 H&P UPDATE INFORMATION: I have reviewed H&P completed within last 30 days, I have examined patient prior to procedure and No changes to prior documentation PREOP DIAGNOSIS: Lumbar stenosis with neurogenic claudication PLANNED PROCEDURE: Operation Date: 05/03/23 07:00 Proposed Procedures p Lumbar Spine Decompression Lumbar Decompression(Right) - Yuri Hicks DO s Right L5-S1 Micro Lumbar Discectomy(Right) - Yuri Hicks DO
[2023-05-03] MEDS: ceFAZolin 2,000 MG in sodium chloride 0.9% (plus) 50 ML 100 MG IV (06:59)
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
[2023-05-03] MEDS: thrombin 5,000 unit SDV 5000 UNIT XX (07:45)
[2023-05-03] MEDS: lidocaine-epi 1% 20 mL INJ INJECTION (07:46)
--- NOTE | 2023-05-03 08:58 | PM.OP ---
Operative Report Date of procedure: May 03, 2023 Pre-op diagnosis: Lumbar stenosis with neurogenic claudication Post-op diagnosis: same Procedure done: 1. L4-5 laminectomy with partial facetectomy 2. L5-S1 laminectomy with partial facetectomy discectomy Surgeon: Yuri Hicks DO Estimated blood loss (mL): 15 Procedure: 1. L4-5 laminectomy with partial facetectomy 2. L5-S1 laminectomy with partial facetectomy discectomy Patient is brought to the operative suite. After undergoing anesthesia they are placed in the prone position. All areas of impingement are well padded. Patient is then prepped and draped in the normal sterile fashion. A skin incision is made over the L4/5 level. This is confirmed under c-arm guidance. A series of dilators are passed and the tubular retractor is docked on the L4 lamina. A bovie is used to clear the soft tissue off the lamina and the L 4/5 facet joint. A high speed merissa is then used to perform the laminectomy and take down the medial aspect of the L 4/5 facet joint. A kerrison rongeure was then used to take down the remaining lamina and smooth the edge of the laminectomy up to the point where the ligamentum flavum attaches. Attention was then brought to the medial aspect of the facet joint. The remaining medial aspect of the superior and inferior aspect of the facet joint were taken down with the kerrison from the pedicle of L4 to L 5. The facet joint had significant hypertrophy. Attention was then brought to the Ligamentum Flavum. The ligament was taken down from the lamina of L4 to L5 and out medially to the remaining facet joint. The ligament was thick. The dura was then exposed. The dura was in good repair. The L4 nerve was then traced with a curette out the L4/5 foramen and found to be adequately decompressed. The L5 nerve was traced with a curette around the L5 pedicle. The lateral recess was opened with a kerrison helping to further decompress the L5 nerve. Wound is then irrigated copiously with saline and surgiflo is used to stop any bleeding. The tubular retractor is removed and the A skin incision is made over the L5-S1 level. This is confirmed under c-arm guidance. A series of dilators are passed and the tubular retractor is docked on the L5 lamina. A bovie is used to clear the soft tissue off the lamina and the L 5/S1 facet joint. A high speed merissa is then used to perform the laminectomy and take down the medial aspect of the L 5/S1 facet joint. A kerrison rongeure was then used to take down the remaining lamina and smooth the edge of the laminectomy up to the point where the ligamentum flavum attaches. Attention was then brought to the medial aspect of the facet joint. The remaining medial aspect of the superior and inferior aspect of the facet joint were taken down with the kerrison from the pedicle of L5 to S1. The facet joint had significant hypertrophy. Attention was then brought to the Ligamentum Flavum. The ligament was taken down from the lamina of L5 to S1 and out medially to the remaining facet joint. The ligament was thick. The dura was then exposed. The dura was in good repair. S1 nerve was retracted medially disc was identified With a knife and back which was used to take 2 pieces disc fragments out the release. And then the displaced irrigated and loose fragments were taken out. The L5 nerve was then traced with a curette out the L5/S1 foramen and found to be adequately decompressed. The s1 nerve was traced with a curette around the S1 pedicle. The lateral recess was opened with a kerrison helping to further decompress the S1 nerve. Wound is then irrigated copiously with saline and surgiflo is used to stop any bleeding. The tubular retractor is removed and the wound is closed with vicryl and monocryl suture. Glue is then used to protect the wound. A sterile dressing is then placed. Patient was then placed in the supine position and transferred to the PACU in stable condition.
[2023-05-03] MEDS: morphine 4 mg/mL SDV 1 mL IVP (09:55)
[2023-05-03] MEDS: oxyCODONE-APAP 5-325 mg Tablet 1 TAB PO (10:44)
--- NOTE | 2023-05-03 11:10 | ANE.PACU2 ---
Inpatient post-anesthesia follow up: Airway intact: Yes Vital signs: Temperature 97.0 F Pulse Rate 87 Respiratory Rate 18 Blood Pressure 121/71 Pulse Oximetry 97 Oxygen Delivery Me thod Room Air Oxygen Flow Rate 6 Fraction of Inspir ed Oxygen Hydration adequate: Yes Nausea and vomiting: No Pain level: 1 Mental status: Baseline
== END 2023-05-03 11:11 | disposition home or self-care (01) ==
PROVIDERS: PCP Family Medicine Adult Medicine; Visit Provider Orthopaedic Surgery
PROC: (CPT 63005; principal; 2023-05-03 07:00)
PROC: (CPT 63047; 2023-05-03 07:00)
DX: M48.062 Spinal stenosis, lumbar region with neurogenic claudication (principal); F17.200 Nicotine dependence, unspecified, uncomplicated
CPT/HCPCS: 63047; 63048; 72100; 76000; J0690; J1100; J1170; J2270; J2405; J2704; J3010; J3490; J7030

== ENCOUNTER → 2023-10-01 14:33 | Outpatient (BNVA) | payer OTHER, SELFPAY | PROVIDERS: Visit Provider Orthopaedic Surgery | DX: M54.50 Low back pain, unspecified (principal); Z98.890 Other specified postprocedural states; M79.605 Pain in left leg; M79.604 Pain in right leg | CPT/HCPCS: 72100 ==

== ENCOUNTER 2023-10-22 06:54 | Outpatient (CLI) | payer OTHER, SELFPAY ==
--- NOTE | 2023-10-22 07:15 | MR_ITS ---
WS: [id number] MRI LUMBAR SPINE NONCONTRAST HISTORY: Low back pain, bilateral lower extremity pain. History of discectomy 6 months ago. COMPARISON: 08/20/2023 TECHNIQUE: Sagittal and axial multisequence imaging is submitted. Normal lumbar alignment with no compression fractures or marrow edema. Mild disc desiccation at L5-S1 without significant narrowing. Conus terminates normally at L1. L1-L2: Normal. L2-L3: Mild ligamentum flavum and facet hypertrophy. No stenosis. L3-L4: Mild annular disc bulging with moderate ligamentum flavum and facet arthritis. Mild encroachme nt upon the subarticular recesses and traversing L4 nerve roots. Mild disc encroachment into the LEFT foramen. Similar to the prior study. L4-L5: Diffuse annular disc bulging with marked ligamentum flavum and facet arthritis. Ligamentum fla vum hypertrophy is increasing. There does appear to be a RIGHT hemilaminectomy defect present. Small amount of fluid in the facet joints. Mild to moderate central with bilateral subarticular recess and LEFT foraminal stenosis. Minimal RIGHT foraminal stenosis. There is disc contact on the traversing L5 nerve roots. L5-S1: Mild diffuse annular disc bulging. Right-sided hemilaminectomy defect. There is a soft tissue mass contacting the ventral thecal sac and extending into the RIGHT subarticular recess with annular fissure. RIGHT traversing S1 nerve root is enlarged and slightly edematous. There is also mild osteop hytic ridging. Fluid in the facet joints. Moderate central with bilateral foraminal stenosis. More si gnificant RIGHT subarticular recess encroachment. MR/MR lumbar spine wo con* [id number] IMPRESSION: 1. Moderate-sized RIGHT paracentral disc protrusion at L5-S1 with contact on t he RIGHT S1 nerve root. RIGHT S1 nerve root appears slightly enlarged and edema tous. 2. L5-S1: Moderate central with bilateral foraminal stenosis and more signific ant RIGHT subarticular recess encroachment by the disc which contains an annula r fissure. 3. RIGHT hemilaminectomy defects at L4-5 and L5-S1. 4. L4-5: Mild to moderate central with subarticular recess and LEFT foraminal stenosis. Disc contact on the traversing L5 nerve roots. 5. L3-4: Mild subarticular recess encroachment with disc contacting the solange sing L4 nerve roots.
== END 2023-10-22 06:55 | disposition home or self-care (01) ==
PROVIDERS: Visit Provider Orthopaedic Surgery
DX: M51.24 Other intervertebral disc displacement, thoracic region (principal); M54.18 Radiculopathy, sacral and sacrococcygeal region; M99.63 Osseous and subluxation stenosis of intervertebral foramina of lumbar region; M99.64 Osseous and subluxation stenosis of intervertebral foramina of sacral region
CPT/HCPCS: 72148

== ENCOUNTER 2023-11-11 09:03 | Outpatient (CLI) | payer OTHER, SELFPAY ==
[2023-11-11 09:42] LABS: Basophils % 0.3 %; Eosinophils # 0.1 10^3/uL (0.0-0.8); Hematocrit 45.7 % (37-53); Lymphocytes % 28.9 %; Mean Corpuscular HGB Conc 33.3 g/dL (30-55); Mean Corpuscular Hemoglobin 29.1 pg (27-33); Mean Corpuscular Volume 87.5 fl (82-101); Mean Platelet Volume 9.5 fL (7.4-10.4); Monocytes # 0.5 10^3/uL (0.2-0.9); Monocytes % 6.7 %; Neutrophils # 4.42 10^3/uL (1.8-7.7); Neutrophils % 62.8 %; Nucleated Red Blood Cells % 0 %; Platelet Count 348 10^3/cmm (157-399); Red Blood Count 5.22 10^6/uL (3.85-5.65); Red Cell Distribution Width 12.6 % (12.1-15.1); White Blood Count 7.03 10^3/uL (3.29-11.43)
[2023-11-11 09:45] LABS: Bilirubin Urine Negative (Negative); Blood Urine Negative (Negative); Glucose Urine UA Negative (Normal); Ketones Urine Negative (Negative); Leukocyte Esterase Urine Negative (Negative); Nitrate Urine Negative (Negative); Protein Urine Negative (Negative); Specific Gravity, Urine 1.017 (1.005-1.030); Urine Appearance Clear (CLEAR); Urine Color Yellow (Yellow); Urobilinogen Urine 0.2 mg/dL (Negative); pH Urine 6.5 (5-7)
[2023-11-11 09:51] LABS: Add Urine Microscopic? YES; Bacteria Urine None Seen /hpf; Hyaline Casts Urine 0-4 /lpf; RBC Urine 0-2 /hpf (0-2); Squamous Epithelial Cell Urine 0-5 /hpf (0-5); WBC Urine 0-5 /hpf (0-5)
[2023-11-11 10:02] LABS: Alanine Aminotransferase 32 U/L (0-41); Albumin Level 4.4 g/dL (3.5-5.2); Alkaline Phosphatase 61 U/L (40-130); Aspartate Amino Transferase 19 U/L (0-40); Blood Urea Nitrogen 12 mg/dL (6-20); Calcium 8.9 mg/dL (8.5-10.5); Carbon Dioxide 27 mmol/L (22-29); Chloride 101 mmol/L (98-107); Glomerular Filtration Rate 104.6 mL/min (90-130); Glucose 152 mg/dL (65-115); Osmolality Calculated 285 mOsm/kg (285-295); Sodium 136 mmol/L (136-145); Total Bilirubin 0.3 mg/dL (0.15-1.2); Total Protein 7.4 g/dL (6.6-8.7)
== END 2023-11-11 09:04 | disposition home or self-care (01) ==
LOC: LAB 09:05
PROVIDERS: Visit Provider Orthopaedic Surgery
DX: Z01.818 Encounter for other preprocedural examination (principal)
CPT/HCPCS: 36415; 80053; 81001; 85025

== ENCOUNTER 2023-11-22 05:36 | Day surgery (SDC) | payer OTHER, SELFPAY ==
[2023-11-22] VITALS (15 sets, daily range): BP systolic 109–132; BP diastolic 60–85; PULSE 71–93; RESP 14–18; TEMP 36.6–37.1; O2SAT 97–100; BMI 30.5
[2023-11-22] MEDS: sodium chloride 0.9% 1,000 ML 30 ML IV (06:12)
--- NOTE | 2023-11-22 06:35 | W.PM.OPSUD ---
Surgery/Procedure H&P Update DATE OF PROCEDURE: November 22, 2023 DATE H&P PERFORMED: 11/15/23 H&P UPDATE INFORMATION: I have reviewed H&P completed within last 30 days, I have examined patient prior to procedure and No changes to prior documentation PREOP DIAGNOSIS: Lumbar stenosis with neurogenic claudication PLANNED PROCEDURE: Operation Date: 11/22/23 07:00 Proposed Procedures p Lumbar Spine Decompression Lumbar Decompression(Not Applicable) - Yuri Hicks DO
[2023-11-22] MEDS: midazolam 1 mg/mL INJ 2 mL 2 MG IVP (06:41)
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
[2023-11-22] MEDS: ceFAZolin 2,000 mg SDV 2000 MG IVP (07:00)
[2023-11-22] MEDS: lidocaine-epi 1% 20 mL INJ INJECTION (07:32)
--- NOTE | 2023-11-22 08:42 | PM.OP ---
Operative Report Date of procedure: November 22, 2023 Pre-op diagnosis: Lumbar stenosis with neurogenic claudication Post-op diagnosis: same Procedure done: 1. L4-5 laminectomy and partial facetectomy revision 2. L5-S1 laminectomy with partial facetectomy and discectomy revision Surgeon: Yuri Hicks DO Estimated blood loss (mL): 5 Procedure: 1. L4-5 laminectomy and partial facetectomy revision 2. L5-S1 laminectomy with partial facetectomy and discectomy revision Patient is brought to the operative suite. After undergoing anesthesia they are placed in the prone position. All areas of impingement are well padded. Patient is then prepped and draped in the normal sterile fashion. A skin incision is made over the L4/5 level. This is confirmed under c-arm guidance. A series of dilators are passed and the tubular retractor is docked on the L4 lamina. A bovie is used to clear the soft tissue off the lamina and the L 4/5 facet joint. A high speed merissa is then used to perform the laminectomy and take down the medial aspect of the L 4/5 facet joint. A kerrison rongeure was then used to take down the remaining lamina and smooth the edge of the laminectomy up to the point where the ligamentum flavum attaches. Attention was then brought to the medial aspect of the facet joint. The remaining medial aspect of the superior and inferior aspect of the facet joint were taken down with the kerrison from the pedicle of L4 to L 5. The facet joint had significant hypertrophy. Attention was then brought to the Ligamentum Flavum. The ligament was taken down from the lamina of L4 to L5 and out medially to the remaining facet joint. The ligament was thick. The dura was then exposed. The dura was in good repair. The L4 nerve was then traced with a curette out the L4/5 foramen and found to be adequately decompressed. The L5 nerve was traced with a curette around the L5 pedicle. The lateral recess was opened with a kerrison helping to further decompress the L5 nerve. Wound is then irrigated copiously with saline and surgiflo is used to stop any bleeding. The tubular retractor is removed. A skin incision is made over the L5/S1 level. This is confirmed under c-arm guidance. A series of dilators are passed and the tubular retractor is docked on the L5 lamina. A bovie is used to clear the soft tissue off the lamina and the L 5/S1 facet joint. A high speed merissa is then used to perform the laminectomy and take down the medial aspect of the L 5/S1 facet joint. A kerrison rongeure was then used to take down the remaining lamina and smooth the edge of the laminectomy up to the point where the ligamentum flavum attaches. Attention was then brought to the medial aspect of the facet joint. The remaining medial aspect of the superior and inferior aspect of the facet joint were taken down with the kerrison from the pedicle of L5 to S1. The facet joint had significant hypertrophy. Attention was then brought to the Ligamentum Flavum. The ligament was taken down from the lamina of L5 to S1 and out medially to the remaining facet joint. The ligament was thick. The dura was then exposed. The dura was in good repair. There is similar scar tissue the facet was taken down and the disc was identified. There is small disc fragment. The tubular retractor was then placed and the disc fragments were removed. The L5 nerve was then traced with a curette out the L5/S1 foramen and found to be adequately decompressed. The S1 nerve was traced with a curette around the S1 pedicle. The lateral recess was opened with a kerrison helping to further decompress the S1 nerve. Wound is then irrigated copiously with saline and surgiflo is used to stop any bleeding. The tubular retractor is removed and the wound is closed with vicryl and monocryl suture. Glue is then used to protect the wound. A sterile dressing is then placed. Patient was then placed in the supine position and transferred to the PACU in stable condition.
--- NOTE | 2023-11-22 08:45 | XR_ITS ---
WS: [id number] XR lumbar spine 2-3V* [id number] REASON FOR EXAM: OR PICS FINDINGS: Surgical appliance overlying the left L4-L5 disc space. XR/XR lumbar spine 2-3V* [id number] IMPRESSION: Intraoperative lumbar localization as above.
[2023-11-22] MEDS: fentaNYL 50 mcg/mL INJ 2mL IVP (09:12)
[2023-11-22] MEDS: oxyCODONE 5 mg IR Tab/Cap PO (09:40)
--- NOTE | 2023-11-22 10:15 | ANE.PACU2 ---
Inpatient post-anesthesia follow up: Airway intact: Yes Vital signs: Temperature 97.8 F Pulse Rate 78 Respiratory Rate 18 Blood Pressure 119/68 Pulse Oximetry 98 Oxygen Delivery Me thod Room Air Oxygen Flow Rate 6 Fraction of Inspir ed Oxygen Hydration adequate: Yes Nausea and vomiting: No Pain level: 1 Mental status: Baseline
== END 2023-11-22 10:15 | disposition home or self-care (01) ==
PROVIDERS: Visit Provider Orthopaedic Surgery
PROC: (CPT 63005; principal; 2023-11-22 07:00)
DX: M48.062 Spinal stenosis, lumbar region with neurogenic claudication (principal)
CPT/HCPCS: 63047; 63048; 72100; 76000; J0690; J1100; J2250; J2405; J2704; J2710; J3010; J3490; J7030

== ENCOUNTER 2023-11-27 20:12 | Emergency (ER) | payer OTHER, SELFPAY ==
[2023-11-27 20:29] VITALS: BP 116/59; PULSE 99; RESP 18; TEMP 37.4; O2SAT 95; BMI 31.5
[2023-11-27 20:33] VITALS: BP 88/63; PULSE 83; O2SAT 95
[2023-11-27 20:50] LABS: Basophils % 0.3 %; Eosinophils % 0.6 %; Hematocrit 43.4 % (37-53); Lymphocytes # 1.2 10^3/uL (0.8-4.8); Lymphocytes % 17.3 %; Mean Corpuscular HGB Conc 33.4 g/dL (30-55); Mean Corpuscular Hemoglobin 28.5 pg (27-33); Mean Corpuscular Volume 85.3 fl (82-101); Mean Platelet Volume 8.9 fL (7.4-10.4); Monocytes # 0.6 10^3/uL (0.2-0.9); Monocytes % 8.1 %; Neutrophils # 5.17 10^3/uL (1.8-7.7); Neutrophils % 73.3 %; Nucleated Red Blood Cells % 0 %; Platelet Count 350 10^3/cmm (157-399); Red Blood Count 5.09 10^6/uL (3.85-5.65); Red Cell Distribution Width 12.1 % (12.1-15.1); White Blood Count 7.05 10^3/uL (3.29-11.43)
[2023-11-27 20:51] LABS: Bilirubin Urine Negative (Negative); Blood Urine Negative (Negative); Glucose Urine UA Negative (Normal); Ketones Urine Negative (Negative); Leukocyte Esterase Urine Negative (Negative); Nitrate Urine Negative (Negative); Protein Urine Negative (Negative); Specific Gravity, Urine 1.005 (1.005-1.030); Urine Appearance Clear (CLEAR); Urine Color Yellow (Yellow)
[2023-11-27 20:56] LABS: Bacteria Urine None Seen /hpf; Hyaline Casts Urine 0-4 /lpf; RBC Urine 0-2 /hpf (0-2); Squamous Epithelial Cell Urine 0-5 /hpf (0-5); WBC Urine 0-5 /hpf (0-5)
--- NOTE | 2023-11-27 20:59 | CTR_ITS ---
PROCEDURE INFORMATION: Exam: CT Lumbar Spine Without Contrast Exam date and time: 11/27/2023 9:03 PM Age: 23 years old Clinical indication: Low back pain; Prior surgery; Surgery date: <1 month; Additional info: Post surgical pain TECHNIQUE: Imaging protocol: Computed tomography of the lumbar spine without contrast. Radiation optimization: All CT scans at this facility use at least one of these dose optimization techniques: automated exposure control; mA and/or kV adjustment per patient size (includes targeted exams where dose is matched to clinical indication); or iterative reconstruction. COMPARISON: MR lumbar spine wo con* [id number] 10/22/2023 7:03 AM RADIATION DOSE METRICS: Total DLP (mGy-cm): 864 FINDINGS: Bones/joints: The vertebral body alignment and stature is intact. Right L4 laminectomy with multiple small bone fragments in the defect. Partial right L5 laminectomy. L1-L2: No significant disc bulge or herniation. No severe spinal canal stenosis. No significant neural foraminal narrowing. L2-L3: No significant disc bulge or herniation. No severe spinal canal stenosis. No significant neural foraminal narrowing. L3-L4: No significant disc bulge or herniation. No severe spinal canal stenosis. No significant neural foraminal narrowing. L4-L5: No significant disc bulge or herniation. No severe spinal canal stenosis. No significant neural foraminal narrowing. L5-S1: Mild posterior disc bulge. No foraminal stenosis. No central canal stenosis. Soft tissues: Soft tissue gas in the right L4 laminectomy defect with an air-fluid level. Surgical incision with subcutaneous fat stranding in the lumbar region. Hypodensity in the posterior right paraspinous muscles at L4 and L5. CT/CT lumbar spine wo con* [id number] IMPRESSION: 1. Recent right L4 and partial right L5 laminectomy defects. 2. Soft tissue gas in the right L4 laminectomy defect with an air-fluid level. This may represent normal postsurgical gas and seroma. If the surgery was greater than 10 days ago, soft tissue infection with abscess cannot be excluded. 3. Hypodensity in the right L4-L5 paraspinous muscles. This is most likely related to the recent surgery.
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
[2023-11-27 21:03] VITALS: PULSE 94; O2SAT 95
[2023-11-27 21:10] LABS: Alanine Aminotransferase 45 U/L (0-41); Albumin Level 4.2 g/dL (3.5-5.2); Alkaline Phosphatase 59 U/L (40-130); Anion Gap 14.9 (5-19); Aspartate Amino Transferase 20 U/L (0-40); Blood Urea Nitrogen 10 mg/dL (6-20); C Reactive Protein 40.4 mg/L (0.0-4.9); Calcium 8.5 mg/dL (8.5-10.5); Carbon Dioxide 26 mmol/L (22-29); Chloride 96 mmol/L (98-107); Creatinine Clr Calc Pharmacy 151.1539; Globulin 3.1 g/dL (1.3-4.6); Glomerular Filtration Rate 104.6 mL/min (90-130); Glucose 107 mg/dL (65-115); Lactic Sepsis W/Reflex 0.8 mmol/L (0.5-2.2); Osmolality Calculated 276 mOsm/kg (285-295); Potassium 3.9 mmol/L (3.5-5.1); Sodium 133 mmol/L (136-145); Total Bilirubin 0.6 mg/dL (0.15-1.2); Total Protein 7.3 g/dL (6.6-8.7)
[2023-11-27] MEDS: cefTRIAXone 1,000 mg SDV 1000 MG IVP (22:00)
[2023-11-27] MEDS: HYDROmorphone 1 mg/mL INJ 1 mL IVP (22:01)
[2023-11-27] MEDS: ondansetron 2 mg/ML SDV 2 mL 4 MG IVP (22:02)
[2023-11-27 22:03] VITALS: PULSE 83; O2SAT 95
[2023-11-27] MEDS: ketorolac 30 mg/mL INJ IVP (22:03)
[2023-11-27 23:33] VITALS: BP 101/71; PULSE 66; O2SAT 95
[2023-11-28 00:23] VITALS: BP 92/56; PULSE 66; O2SAT 95
== END 2023-11-28 00:25 | disposition home or self-care (01) ==
PROVIDERS: Emergency Provider Emergency Medicine
DX: R50.82 Postprocedural fever (principal); Z72.0 Tobacco use
CPT/HCPCS: 36415; 72131; 80053; 81001; 83605; 85025; 86140; 87040; 96374; 96375; 99285; J0696; J1170; J1885; J2405

== ENCOUNTER → 2024-01-30 10:47 | Outpatient (BNVA) | payer OTHER, SELFPAY | PROVIDERS: Visit Provider Orthopaedic Surgery | DX: Z98.890 Other specified postprocedural states; M54.2 Cervicalgia; M25.569 Pain in unspecified knee | CPT/HCPCS: 72050; 73560; 73565 ==

== ENCOUNTER 2024-02-11 11:51 | Outpatient (RCR) | payer OTHER, SELFPAY | END 2024-02-11 23:59 | disposition home or self-care (01) | LOC: SPT 11:51 | PROVIDERS: Visit Provider Orthopaedic Surgery | DX: M25.561 Pain in right knee (principal); M25.562 Pain in left knee; M54.50 Low back pain, unspecified; M54.2 Cervicalgia | CPT/HCPCS: 97110; 97162 ==

== ENCOUNTER 2024-02-12 06:00 | Outpatient (RCR) | payer OTHER, SELFPAY | END 2024-03-13 23:59 | disposition home or self-care (01) | LOC: SPT 06:00 | PROVIDERS: Visit Provider Orthopaedic Surgery | DX: M25.561 Pain in right knee (principal); M25.562 Pain in left knee; M54.50 Low back pain, unspecified | CPT/HCPCS: 97110 ==